=== PATIENT | female | born 1940 | race Caucasian/White ===

== ENCOUNTER 2017-01-18 11:39 | Emergency (ER) | payer MEDICARE, OTHER ==
--- NOTE | 2017-01-18 13:20 | EDM.PDOC ---
ED HISTORY OF PRESENT ILLNESS - General Chief Complaint: Cardiovascular Problem Stated Complaint: FROM CLINIC LOW HEART RATE Time Seen by Provider: 01/18/17 12:50 Source: Reports: Patient, Family, RN notes reviewed History Limitations: Reports: No limitations - History of Present Illness INITIAL COMMENTS - FREE TEXT/NARRATIVE: 77-year-old female presents to emergency department today sent over from clinic for a low heart rate and fatigue she was evaluated by the orthopedic staff at the [facility] for further evaluation. She arrives in the emergency department stage she feels fine is really complaining of no symptoms does have a history of hypothyroidism on replacement has not had her thyroid checked in a while. Review of clinic records show that she has had a couple of bradycardic episodes in the 40s tach in 2014 with a couple of minutes in 2015 as well last thyroid was checked in August of 2016 and there is a future order for thyroid - Related Data Allergies/ADRs: Allergies Allergy/AdvReac Type Severity Reaction Status Date / Time hydrocodone Allergy Other Verified 03/28/16 06:47 Home Meds: Home Meds Aspirin [Children's Aspirin] 81 mg PO DAILY 10/28/15 [History] B Complex With Vitamin C [Super B Complex-Vitamin C] 1 tab PO DAILY 10/28/15 [ History] Biotin 5,000 mcg PO DAILY 10/28/15 [History] Cholecalciferol (Vitamin D3) [Vitamin D3] 2,000 unit PO DAILY 10/28/15 [History] Cyanocobalamin (Vitamin B-12) [Vitamin B-12] 2,500 mcg SL DAILY 10/28/15 [ History] LORazepam [Ativan] 1 mg PO BID PRN 10/28/15 [History] Levothyroxine [Sythroid] 100 mcg PO DAILY 10/28/15 [History] Gillett-3/DHA/Epa/Fish Oil [Gillett-3 Fish Oil 1,000 MG Sfgl] 1,000 mg PO DAILY 04/07 [History] Pediatric Multivit Comb #19/FA [Flintstones Multi-Vit Gummies] 1 tab PO BID 04/07 [History] Potassium Chloride [Klor-Con 10] 10 meq PO DAILY 10/28/15 [History] Vitamin E 400 unit PO DAILY 10/28/15 [History] Zolpidem [Ambien] 5 mg PO BEDTIME PRN 10/28/15 [History] Past Medical History HEENT History: Reports: Allergic rhinitis, Impaired vision Other HEENT History: wears glasses 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: , 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 Musculoskeletal History: Reports: Fracture, Osteoarthritis, Osteoporosis Neurological History: Reports: Vertigo Psychiatric History: Reports: Anxiety, Depression Endocrine/Metabolic History: Reports: Hypoparathyroidism, Obesity/BMI 30+ - Infectious Disease History Infectious Disease History: Reports: Chicken pox, Measles, Rubella - Past Surgical History HEENT Surgical History: Reports: Adenoidectomy, Tonsillectomy GI Surgical History: Reports: Bariatric procedure, Colonoscopy, EGD Female Surgical History: Reports: Hysterectomy Musculoskeletal Surgical History: Reports: Other (see below) Other Musculoskeletal Surgeries/Procedures:: right thumb Social & Family History - Family History Family Medical History: Noncontributory - Tobacco Use Smoking Status *Q: Former Smoker Second Hand Smoke Exposure: No - Caffeine Use Caffeine Use: Reports: Coffee, Tea Other Caffeine Use: 1-2 cups a day - Alcohol Use Days Per Week of Alcohol Use: 1 Number of Drinks Per Day: 1 Total Drinks Per Week: 1 - Recreational Drug Use Recreational Drug Use: Yes ED ROS GENERAL - Review of Systems Review Of Systems: See Below Constitutional: Reports: no symptoms HEENT: Reports: No symptoms Respiratory: Reports: No Symptoms Cardiovascular: Reports: No symptoms GI/Abdominal: Reports: No symptoms : Reports: no symptoms Musculoskeletal: Reports: no symptoms Skin: Reports: no symptoms Neurological: Reports: No Symptoms ED EXAM, GENERAL - Physical Exam Exam: See Below Exam Limited By: No limitations General Appearance: alert, WD/WN, no apparent distress Head: atraumatic, normocephalic Neck: normal inspection, supple, non-tender, full range of motion Respiratory/Chest: no respiratory distress, lungs clear, normal breath sounds, no accessory muscle use Cardiovascular: regular rate, rhythm, no murmur GI/Abdominal: soft, non tender Course - Vital Signs Last Recorded V/S: Last Vital Signs Temp 93.2 F L 01/18/17 11:45 Pulse 63 01/18/17 11:45 Resp 12 01/18/17 11:45 BP 195/94 H 01/18/17 11:45 Pulse Ox 95 01/18/17 11:45 - Orders/Labs/Meds Labs: Laboratory Tests 03/01/18/17 01/18/17 Range/Units 13:11 13:11 13:11 WBC 7.2 (4.5-11.0) K/uL RBC 4.85 (3.30-5.50) M/uL Hgb 14.9 (12.0-15.0) g/dL Hct 45.0 (36.0-48.0) % MCV 93 (80-98) fL MCH 31 (27-31) pg MCHC 33 (32-36) % Plt Count 261 (150-400) K/uL Neut % (Auto) 60 (36-66) % Lymph % (Auto) 32 (24-44) % Weakley % (Auto) 8 H (2-6) % Eos % (Auto) 1 L (2-4) % Baso % (Auto) 1 (0-1) % Sodium 143 (140-148) mmol/L Potassium 4.7 (3.6-5.2) mmol/L Chloride 106 (100-108) mmol/L Carbon Dioxide 27 (21-32) mmol/L Anion Gap 9.8 (5.0-14.0) mmol/L BUN 19 H (7-18) mg/dL Creatinine 0.8 (0.6-1.0) mg/dL Est Cr Clr Drug Dosing 47.32 mL/min Estimated GFR (MDRD) > 60 (>60) Glucose 100 (74-106) mg/dL Calcium 8.4 L (8.5-10.1) mg/dL TSH, Ultra Sensitive 0.678 (0.358-3.740) uIU/mL Departure - Departure Time of Disposition: 14:25 Disposition: Home, Self-Care 01 Condition: good Clinical Impression: Bradycardia Instructions: Hypertension, [id number] Forms: ED Department Discharge Additional Instructions: Will set her up for a Holter monitor plan to do this as an outpatient she has an appointment Monday, then followup with the primary care for results - Assessment/Plan Plan: Assessment Acuity = chronic Site and laterality = bradycardia Etiology = unclear etiology Manifestations = asymptomatic Location of injury = home Lab values = CBC, CMP, thyroid within normal limits EKG demonstrates normal heart rate normal sinus rhythm Plan I did discuss with her options also discussed with her primary care the plan. we're going to set her up for a Holter monitor as an outpatient at which time results sent to her primary care provider Patient was in agreement with the plan all questions were answered, they were instructed to return to the emergency department or call for worsening symptoms. This note was dictated using [employer] voice recognition software please call with any questions.
[2017-01-18 14:38] VITALS: BP 159/83
== END 2017-01-18 14:45 | disposition home or self-care (01) ==
LOC: JP.ED 11:39
DX: R00.1 Bradycardia, unspecified (principal); F41.9 Anxiety disorder, unspecified; F32.9 Major depressive disorder, single episode, unspecified; E20.9 Hypoparathyroidism, unspecified; E66.9 Obesity, unspecified; Z68.37 Body mass index [BMI] 37.0-37.9, adult; Z98.84 Bariatric surgery status; Z90.710 Acquired absence of both cervix and uterus; Z98.890 Other specified postprocedural states; Z79.82 Long term (current) use of aspirin; Z79.899 Other long term (current) drug therapy; Z88.5 Allergy status to narcotic agent; Z87.891 Personal history of nicotine dependence
CPT/HCPCS: 36415; 80048; 84443; 85025; 99283

== ENCOUNTER 2017-01-25 14:48 | Emergency (ER) | payer MEDICARE, OTHER ==
--- NOTE | 2017-01-25 15:45 | EDM.PDOC ---
ED HISTORY OF PRESENT ILLNESS - General Chief Complaint: Cardiovascular Problem Stated Complaint: ELEVATED BLOOD PRESSURE Time Seen by Provider: 01/25/17 15:14 Source: Reports: Patient, Old records, RN notes reviewed History Limitations: Reports: No limitations - History of Present Illness INITIAL COMMENTS - FREE TEXT/NARRATIVE: 77-year-old female presents to emergency department today for evaluation of blood pressure, she was sent over by clinic for elevated blood pressures. She does bring in her blood pressure log high systolic is 169 height is diastolic is 102, blood pressure reading in the emergency department 152/77 146/66 she was also evaluated earlier this week for bradycardia recently had a Holter monitor test which demonstrates a first degree block with multiple PACs and occasional PVCs however heart rate ranged from 52-112 with an average of 75 beats per minute with no symptoms noted. At this time she is asymptomatic however she is concerned and anxious about her blood pressure - Related Data Allergies/ADRs: Allergies Allergy/AdvReac Type Severity Reaction Status Date / Time hydrocodone Allergy Other Verified 01/25/17 15:05 Home Meds: Home Meds Aspirin [Children's Aspirin] 81 mg PO DAILY 10/28/15 [History] B Complex With Vitamin C [Super B Complex-Vitamin C] 1 tab PO DAILY 10/28/15 [ History] Biotin 5,000 mcg PO DAILY 10/28/15 [History] Cholecalciferol (Vitamin D3) [Vitamin D3] 2,000 unit PO DAILY 10/28/15 [History] Cyanocobalamin (Vitamin B-12) [Vitamin B-12] 2,500 mcg SL DAILY 10/28/15 [ History] LORazepam [Ativan] 1 mg PO BID PRN 10/28/15 [History] Levothyroxine [Sythroid] 100 mcg PO DAILY 10/28/15 [History] Deweese-3/DHA/Epa/Fish Oil [Deweese-3 Fish Oil 1,000 MG Sfgl] 1,000 mg PO DAILY 04/07 [History] Pediatric Multivit Comb #19/FA [Flintstones Multi-Vit Gummies] 1 tab PO BID 04/07 [History] Potassium Chloride [Klor-Con 10] 10 meq PO DAILY 10/28/15 [History] Vitamin E 400 unit PO DAILY 10/28/15 [History] Zolpidem [Ambien] 5 mg PO BEDTIME PRN 10/28/15 [History] Past Medical History HEENT History: Reports: Allergic rhinitis, Impaired vision Other HEENT History: wears glasses Cardiovascular History: Reports: Hypertension 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: , 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 Musculoskeletal History: Reports: Fracture, Osteoarthritis, Osteoporosis Neurological History: Reports: Vertigo Psychiatric History: Reports: Anxiety, Depression Endocrine/Metabolic History: Reports: Hypoparathyroidism, Obesity/BMI 30+ - Infectious Disease History Infectious Disease History: Reports: Chicken pox, Measles, Rubella - Past Surgical History HEENT Surgical History: Reports: Adenoidectomy, Tonsillectomy GI Surgical History: Reports: Bariatric procedure, Colonoscopy, EGD Female Surgical History: Reports: Hysterectomy Musculoskeletal Surgical History: Reports: Other (see below) Other Musculoskeletal Surgeries/Procedures:: right thumb Social & Family History - Family History Family Medical History: Noncontributory - Tobacco Use Smoking Status *Q: Former Smoker Second Hand Smoke Exposure: No - Caffeine Use Caffeine Use: Reports: Coffee, Tea Other Caffeine Use: 1-2 cups a day - Alcohol Use Days Per Week of Alcohol Use: 1 Number of Drinks Per Day: 1 Total Drinks Per Week: 1 - Recreational Drug Use Recreational Drug Use: No ED ROS GENERAL - Review of Systems Review Of Systems: See Below Constitutional: Reports: no symptoms Respiratory: Reports: No Symptoms Cardiovascular: Reports: No symptoms GI/Abdominal: Reports: No symptoms : Reports: no symptoms ED EXAM, GENERAL - Physical Exam Exam: See Below Exam Limited By: No limitations General Appearance: alert, WD/WN, no apparent distress Respiratory/Chest: no respiratory distress, lungs clear, normal breath sounds, no accessory muscle use Cardiovascular: regular rate, rhythm, no murmur Course - Vital Signs Last Recorded V/S: Last Vital Signs Temp 97.7 F 01/25/17 15:03 Pulse 66 01/25/17 16:01 Resp 20 01/25/17 15:03 BP 171/73 H 01/25/17 16:01 Pulse Ox 96 01/25/17 15:03 - Orders/Labs/Meds Orders: Active Orders 24 hr Category Date Time Status EKG Documentation Completion [RC] ASDIRECTED Care 01/25/17 15:48 Active EKG 12 Lead [EK] Stat Ther 01/25/17 15:48 Ordered Departure - Departure Time of Disposition: 16:07 Disposition: Home, Self-Care 01 Condition: good Clinical Impression: Hypertension Qualifiers: Hypertension type: essential hypertension Qualified Code(s): I10 - Essential ( primary) hypertension Forms: ED Department Discharge Additional Instructions: Please keep your followup appointment with your primary care provider on Monday , call return to the ED with worsening of symptoms - My Orders Last 24 Hours: My Active Orders 01/25/17 15:48 EKG Documentation Completion [RC] ASDIRECTED EKG 12 Lead [EK] Stat - Assessment/Plan Last 24 Hours: My Active Orders 01/25/17 15:48 EKG Documentation Completion [RC] ASDIRECTED EKG 12 Lead [EK] Stat Plan: Assessment Acuity = chronic Site and laterality = prehypertension complication the patient's known history of anxiety Etiology = unknown etiology Manifestations = none Location of injury = home Lab values = EKG demonstrates a normal sinus rhythm at 69 blood pressures initial 152/72 and a second reading of 146/66 Plan As a followup with her primary care provider on Monday recommend review recent Holter monitor results as well as blood pressure evaluation Patient was in agreement with the plan all questions were answered, they were instructed to return to the emergency department or call for worsening symptoms. This note was dictated using [employer] voice recognition software please call with any questions.
[2017-01-25 16:01] VITALS: BP 171/73
== END 2017-01-25 16:16 | disposition home or self-care (01) ==
LOC: JP.ED 14:48
DX: I10 Essential (primary) hypertension (principal); F41.9 Anxiety disorder, unspecified; F32.9 Major depressive disorder, single episode, unspecified; E20.9 Hypoparathyroidism, unspecified; E66.9 Obesity, unspecified; Z68.37 Body mass index [BMI] 37.0-37.9, adult; Z79.82 Long term (current) use of aspirin; Z79.899 Other long term (current) drug therapy; Z88.5 Allergy status to narcotic agent; Z98.84 Bariatric surgery status; Z90.710 Acquired absence of both cervix and uterus; Z98.890 Other specified postprocedural states; Z87.891 Personal history of nicotine dependence
CPT/HCPCS: 93005; 93010; 99283; 99284-25

== ENCOUNTER 2017-12-30 13:08 | Emergency (ER) | payer MEDICARE, BC ==
[2017-12-30 14:15] VITALS: BP 174/90
--- NOTE | 2017-12-30 14:53 | EDM.PDOC ---
ED HPI GENERAL MEDICAL PROBLEM - General Chief Complaint: General Stated Complaint: SINUS SWEELING IN FACE Time Seen by Provider: 12/30/17 14:35 Source of Information: Reports: Patient, Old Records, RN History Limitations: Reports: No Limitations - History of Present Illness INITIAL COMMENTS - FREE TEXT/NARRATIVE: 77 yo female presents with R cheek pain, pressure and puffiness. Was tx'd for sinusitis about 6 weeks ago, this feels the same. No fever. No sore throat. No purulent nasal discharge. No cough. Onset Date: 12/28/17 Duration: Day(s): Location: Reports: Face (R cheek) Quality: Reports: Ache Severity: Mild Improves with: Reports: None Worsens with: Reports: Other (? 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) - Related Data Allergies Allergy/AdvReac Type Severity Reaction Status Date / Time hydrocodone Allergy Other Verified 12/30/17 14:04 Home Meds: Home Meds Aspirin [Children's Aspirin] 81 mg PO DAILY 10/28/15 [History] B-Complex with Vitamin C [Super B Complex-Vitamin C] 1 tab PO DAILY 10/28/15 [ History] Biotin 5,000 mcg PO DAILY 10/28/15 [History] Cholecalciferol (Vitamin D3) [Vitamin D3] 2,000 unit PO DAILY 10/28/15 [History] Cyanocobalamin (Vitamin B-12) [Vitamin B-12] 2,500 mcg SL DAILY 10/28/15 [ History] LORazepam [Ativan] 1 mg PO BID PRN 10/28/15 [History] Gilbert-3/DHA/Epa/Fish Oil [Gilbert-3 Fish Oil 1,000 MG Sfgl] 1,000 mg PO DAILY 04/07 [History] Pediatric Multivit Comb #19/FA [Flintstones Multi-Vit Gummies] 1 tab PO BID 04/07 [History] Potassium Chloride [Klor-Con 10] 10 meq PO DAILY 10/28/15 [History] Vitamin E 400 unit PO DAILY 10/28/15 [History] Zolpidem [Ambien] 5 mg PO BEDTIME PRN 10/28/15 [History] Amoxicillin 875 mg PO BID #14 tab 12/30/17 [Rx] Thyroid,Pork [Nature-Throid] 3 tab PO DAILY 12/30/17 [History] Past Medical History HEENT History: Reports: Allergic Rhinitis, Impaired Vision Other HEENT History: wears glasses Cardiovascular History: Reports: Hypertension 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: , 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 Musculoskeletal History: Reports: Fracture, Osteoarthritis, Osteoporosis Neurological History: Reports: Vertigo Psychiatric History: Reports: Anxiety, Depression Endocrine/Metabolic History: Reports: Hypoparathyroidism, Obesity/BMI 30+ - Infectious Disease History Infectious Disease History: Reports: Chicken Pox, Measles, Rubella - Past Surgical History GI Surgical History: Reports: Bariatric Procedure, Colonoscopy, EGD Female Surgical History: Reports: Hysterectomy Musculoskeletal Surgical History: Reports: Other (See Below) Social & Family History - Family History Family Medical History: Noncontributory - Tobacco Use Smoking Status *Q: Never Smoker Second Hand Smoke Exposure: No - Caffeine Use Caffeine Use: Reports: Coffee, Tea Other Caffeine Use: 1-2 cups a day - Alcohol Use Days Per Week of Alcohol Use: 1 Number of Drinks Per Day: 1 Total Drinks Per Week: 1 - Recreational Drug Use Recreational Drug Use: No ED ROS GENERAL - Review of Systems Review Of Systems: See Below Constitutional: Reports: No Symptoms HEENT: Reports: Sinus Problem (R cheek tenderness) Respiratory: Reports: No Symptoms Cardiovascular: Reports: No Symptoms GI/Abdominal: Reports: No Symptoms : Reports: No Symptoms Musculoskeletal: Reports: No Symptoms Skin: Reports: No Symptoms Neurological: Reports: No Symptoms ED EXAM, GENERAL - Physical Exam Exam: See Below Exam Limited By: No Limitations General Appearance: Alert, WD/WN, No Apparent Distress, Other (puffiness and tenderness of R cheek) Eye Exam: Bilateral Eye: Normal Inspection Ears: Normal External Exam, Normal Canal, Hearing Grossly Normal, Normal TMs Ear Exam: Bilateral Ear: Auricle Normal, Canal Normal, TM normal Nose: Normal Inspection, Normal Mucosa, No Blood Throat/Mouth: Normal Inspection, Normal Lips, Normal Teeth (no obvious dental abscess), Normal Oropharynx, Normal Voice, No Airway Compromise Head: Atraumatic, Normocephalic Neck: Normal Inspection, Supple, Non-Tender Respiratory/Chest: No Respiratory Distress, Lungs Clear, Normal Breath Sounds, No Accessory Muscle Use Cardiovascular: Regular Rate, Rhythm Skin Exam: Warm, Dry, Intact, Normal Color Lymphatic: No Adenopathy Course - Vital Signs Last Recorded V/S: Last Vital Signs Temp 35.9 C 12/30/17 14:10 Pulse 81 12/30/17 14:10 Resp 14 12/30/17 14:10 BP 174/90 H 12/30/17 14:10 Pulse Ox 97 12/30/17 14:10 Departure - Departure Time of Disposition: 14:52 Disposition: Home, Self-Care 01 Condition: Good Clinical Impression: Maxillary sinusitis, acute Qualifiers: Recurrence: recurrent Qualified Code(s): J01.01 - Acute recurrent maxillary sinusitis - Discharge Information Prescriptions: Amoxicillin 875 mg PO BID #14 tab Referrals: Conor Shankar MD [Primary Care Provider] - Forms: ED Department Discharge Additional Instructions: Take amoxicillin as directed until gone. Recheck with your doctor next week. Take acetaminophen as needed for pain relief.
== END 2017-12-30 15:08 | disposition home or self-care (01) ==
LOC: JP.ED 13:08
DX: J01.01 Acute recurrent maxillary sinusitis (principal); I10 Essential (primary) hypertension; F32.9 Major depressive disorder, single episode, unspecified; E20.9 Hypoparathyroidism, unspecified; Z79.82 Long term (current) use of aspirin; Z79.899 Other long term (current) drug therapy; Z88.5 Allergy status to narcotic agent
CPT/HCPCS: 99283

== ENCOUNTER 2018-02-20 05:24 | Day surgery (SDC) | payer MEDICARE, BC ==
[2018-02-20] MEDS ORDERED: Dextrose 5%-Lactated Ringers 1,000 ML IV SCH (06:00)
[2018-02-20] MEDS ORDERED: fentaNYL 100 MCG/2 ML SDV ONE (07:02)
[2018-02-20] MEDS ORDERED: Propofol 200 MG/20 ML SDV ONE (07:02)
[2018-02-20 09:09] VITALS: BP 138/71
--- NOTE | 2018-03-02 13:12 | OR ---
DATE OF PROCEDURE: 02/20/2018 PREOPERATIVE DIAGNOSES: 1. Dysphagia referable to distal esophagus without stricturing of esophagus or gastrojejunostomy. 2. Mild inflammation of esophagogastric junction. POSTOPERATIVE DIAGNOSES: OPERATIVE PROCEDURES: Upper GI endoscopy with: 1. Biopsies of gastric pouch for CLOtest (62594). 2. Dilation of gastrojejunostomy (33403). ANESTHESIA: IV sedation. INDICATIONS FOR PROCEDURE: The patient presents with some dysphagia referable to the distal esophagus or gastric pouch area. The plan was to proceed with an upper GI endoscopy with biopsies and/or dilation as indicated. Potential risks including bleeding and perforation were discussed, and the patient wished to proceed. DETAILS OF PROCEDURE: The patient was taken to the operating room and placed in a left lateral decubitus position. IV sedation was administered, after which the upper GI endoscope was passed orally through the length of the esophagus and into the gastric pouch, and from there through the gastrojejunostomy roughly 2 cm into the Wilberto limb. Findings included normal hypopharynx, larynx, upper esophageal sphincter, and esophageal body. At the EG junction, there was some mild inflammation, but there was no significant narrowing or stricturing present, either there or at the gastrojejunostomy. Biopsies were obtained from the gastric pouch and sent for CLOtest for H. pylori. In the event that we might be able to make the gastrojejunostomy somewhat wider, a 54-Ecuadorean balloon was insufflated at the gastrojejunostomy and held in position for 1 minute. There appeared to be very minimal, if any, change in caliber of this, which confirms that it had not developed a significant stricture. The scope was then withdrawn. The above findings were reconfirmed. CONDITION: The patient was taken to the recovery room in a satisfactory condition. PLAN: At this point, the plan will be to have the patient begin Carafate 500 mg in liquid form, either dissolved or as a prescription liquid and drink q.i.d. on an empty stomach. Otherwise, continue the proton pump inhibitors. I will also have Dietary see the patient when she is awake, as this dysphagia distal to the esophagus and GE junction with no strictures present may be related to some eating behavior. It also may be compounded by the patient's evolving dementia. Followup will be with Idalia Cordero PA-C, in [facility] in 2 weeks. Should she continue to have problems with dysphagia, one might consider a course of Levsin at that time. Devyn Myles MD /[id number]
== END 2018-02-20 10:40 | disposition home or self-care (01) ==
LOC: JP.SDS 05:24
PROVIDERS: ATTEND Surgery
DX: R13.10 Dysphagia, unspecified (principal); K20.9 Esophagitis, unspecified; K21.9 Gastro-esophageal reflux disease without esophagitis; E66.01 Morbid (severe) obesity due to excess calories; G47.33 Obstructive sleep apnea (adult) (pediatric); E03.9 Hypothyroidism, unspecified; F41.9 Anxiety disorder, unspecified; F32.9 Major depressive disorder, single episode, unspecified; Z88.5 Allergy status to narcotic agent
CPT/HCPCS: 43239; 43245; 87081; J2704; J3010; J7042

== ENCOUNTER 2018-04-13 07:51 | Day surgery (SDC) | payer MEDICARE, BC ==
[~2018-04-13 07:51] MED LIST: Bupivacaine 0.5% 50 ML MDV ONE; Lidocaine 1% 50 ML MDV ONE; Midazolam 1 MG/ML 2 ML SDV ONE; Propofol 200 MG/20 ML SDV ONE; fentaNYL 100 MCG/2 ML SDV ONE
[2018-04-13] MEDS ORDERED: Sodium Chloride 0.9% 1,000 ML IV SCH (08:45)
[2018-04-13] MEDS ORDERED: ceFAZolin 2 GM in Premix Bag 1 BAG IV ONE (09:00)
[2018-04-13] MEDS ORDERED: metroNIDAZOLE/Normal Saline 500 MG in Premix Bag 1 BAG IV ONE (09:15)
[2018-04-13] MEDS ORDERED: Propofol 200 MG/20 ML SDV ONE (10:00)
[2018-04-13] MEDS ORDERED: Bacitracin Oint 1 GM U/D Packet ONE (10:03)
[2018-04-13] MEDS ORDERED: hydrOXYzine HCl 100 MG/2 ML SDV IM ONE (10:27)
[2018-04-13] MEDS ORDERED: fentaNYL 100 MCG/2 ML SDV IVPUSH ONE (10:27)
[2018-04-13] MEDS ORDERED: Ertapenem 1 GM in Sodium Chloride 0.9% 100 ML IV ONE (11:30)
[2018-04-13] MEDS ORDERED: Ketorolac 60 MG/2 ML SDV IM ONE (11:30)
--- NOTE | 2018-04-13 11:49 | CR ---
CHEST: Portable CLINICAL HISTORY:Postop, catheter placement COMPARISON:11/29/2010 FINDINGS: Lung chaudhary are clear. There is no pneumothorax. Patient has a left subclavian catheter in place. Tip is in the superior vena cava atrial junction. IMPRESSION: Left subclavian catheter in good position No pneumothorax
--- NOTE | 2018-04-13 11:56 | OR ---
DATE OF PROCEDURE: 04/13/2018 PROCEDURES: 1. Drainage of right thumb abscess, complex (14960). 2. Debridement of right thumb, including muscle (78280). 3. Central line, single lumen, placement, left subclavian. COMPLICATIONS: None. 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 ANESTHESIA: MAC/local. INDICATIONS: This is a pleasant 78-year-old female who underwent repair of a laceration of her thumb by the ER physicians. The patient has been treated with antibiotics and is refractory to this. Risks, benefits, alternatives, and limitations including, but not limited to infection, bleeding, and loss of the thumb were explained to the patient, and they wished to proceed. PROCEDURE IN DETAIL: The patient was placed in supine position. The subclavian line was performed first. This was accessed in the left subclavian by prepping and draping. A micropuncture needle kit, was used to access the vein on the first pass. This was then exchanged for a 35,000th wire. This was then dilated and the single-lumen catheter was advanced. Ectopy was noted during the wire placement. This was then sutured into place and dressings were applied. The right thumb was then addressed next. Sutures were removed. This was irrigated, and the infection was noted to be down to the bone. A small amount of muscle was removed due to necrosis. Cultures were performed initially of the abscess pocket, which would be medial and superior to the incision site. After a thorough irrigation with 1 L of irrigation, a quarter-inch iodoform gauze was placed through the wound in a counter-incision technique. Dressings were applied. The patient tolerated the procedure well. Aakash Bolaños MD /[id number]
[2018-04-13 13:34] VITALS: BP 137/69
--- NOTE | 2018-04-20 07:45 | OR ---
DATE OF PROCEDURE: 04/13/2018 ADDENDUM: Size of debridement was 1 cm x 0.3 cm. Aakash Bolaños MD /[id number]
== END 2018-04-13 13:41 | disposition home or self-care (01) ==
LOC: JP.SDS 07:51
PROVIDERS: ATTEND Surgery
DX: T81.4XXA Infection following a procedure, initial encounter (principal); I10 Essential (primary) hypertension; E66.9 Obesity, unspecified; G47.33 Obstructive sleep apnea (adult) (pediatric); F41.9 Anxiety disorder, unspecified; F32.9 Major depressive disorder, single episode, unspecified; Z88.5 Allergy status to narcotic agent
CPT/HCPCS: 26011; 36556; 71045; 87070; 87075; 87077; 87205; C1894; J0690; J1335; J1642; J1885; J2250; J2704; J3010; J3410; J7030

== ENCOUNTER 2019-08-17 15:32 | Inpatient (IN) | payer BC, MEDICARE ==
[2019-08-17] MEDS ORDERED: HYDROmorphone 0.5 MG/0.5 ML Syringe IVPUSH ONE ×2 (16:26→19:04)
[2019-08-17] MEDS ORDERED: Sodium Chloride 0.9% 100 ML IV ONE (16:37)
[2019-08-17] MEDS ORDERED: Iopamidol 612 MG/ML 100 ML Bottle IV SCH (16:45)
[2019-08-17] MEDS: Sodium Chloride 0.9% 10 ML Syringe FLUSH ONE ×2 (16:54→17:13)
[2019-08-17] MEDS ORDERED: Lactated Ringers 1,000 ML IV SCH (17:30)
--- NOTE | 2019-08-17 17:48 | CRLCT ---
INDICATION: Right upper quadrant and epigastric abdominal pain. TECHNIQUE: CT of the abdomen acquired with 100 mL of Isovue 300 IV contrast. COMPARISON: None available. FINDINGS: Lower chest: Linear bibasilar scarring and atelectasis. No pleural or pericardial effusions. Liver: Multiple low-density lesions compatible with cysts measuring up to 2 cm in the left lobe. Liver is otherwise unremarkable. Spleen: Unremarkable. Pancreas: There is a mildly edematous appearance of the distal body and tail of the pancreas with adjacent peripancreatic fat stranding. Stranding extends along the left anterior para renal space and pericolic gutter. No well-defined peripancreatic fluid collection or evidence of bryce pancreatic necrosis. No pancreatic ductal dilatation. Gallbladder and bile ducts: Question tiny stones in the fundus of the gallbladder. The gallbladder is otherwise unremarkable. No biliary ductal dilatation. Kidneys: Unremarkable. Adrenal glands: Unremarkable. GI tract: Postoperative changes about the stomach and small bowel surgical anastomosis suggest gastric bypass. GI tract as imaged is otherwise unremarkable. Vascular structures: Atherosclerotic disease. No abdominal aortic aneurysm. Lymph nodes: Unremarkable. Bones: Chronic compression deformity with associated vertebral augmentation material at L1. Mild to moderate degenerative changes of the visualized spine. IMPRESSION: 1. Mild acute pancreatitis. No evidence of pancreatic pseudocyst or bryce pancreatic necrosis. 2. Probable cholelithiasis. Gallbladder is otherwise unremarkable. No biliary ductal dilatation. Dictated by Miguel Cortes MD @ 08/17/2019 5:46:29 PM Please note that all CT scans at this facility use dose modulation, iterative reconstruction, and/or weight-based dosing when appropriate to reduce radiation dose to as low as reasonably achievable. Dictated by: Miguel Cortes MD @ 08/17/2019 17:46:41 (Electronically Signed)
--- NOTE | 2019-08-17 17:57 | EDM.PDOC ---
ED HPI GENERAL MEDICAL PROBLEM - General Chief Complaint: Abdominal Pain Stated Complaint: constipation Time Seen by Provider: 08/17/19 16:53 Source of Information: Reports: Patient - History of Present Illness INITIAL COMMENTS - FREE TEXT/NARRATIVE: 79 yo presents with concerns of abdominal pain Reports several days of constipation, saw PCP and started on bowel reg Today developed pain in the epigastrium Described as an ache, moderate in severity, no radiation No associated N/V No fevers Normal BM today No prior abdominal surgeries Denies significant etoh use Abdomen Pain Score (Numeric/FACES): 9 - Related Data Allergies Allergy/AdvReac Type Severity Reaction Status Date / Time hydrocodone Allergy Other Verified 08/17/19 16:06 sucralfate [From Carafate] Allergy Other Verified 08/17/19 16:06 Home Meds: Home Meds B-Complex with Vitamin C [Super B Complex-Vitamin C] 1 tab PO DAILY 10/28/15 [ History] Biotin 5,000 mcg PO DAILY 10/28/15 [History] Cholecalciferol (Vitamin D3) [Vitamin D3] 2,000 unit PO DAILY 10/28/15 [History] Cyanocobalamin (Vitamin B-12) [Vitamin B-12] 2,500 mcg SL DAILY 10/28/15 [ History] LORazepam [Ativan] 1 mg PO BID PRN 10/28/15 [History] Potassium Chloride [Klor-Con 10] 10 meq PO DAILY 10/28/15 [History] Vitamin E 400 unit PO DAILY 10/28/15 [History] Calcitonin ([place]) [Miacalcin Nasal [place]] 1 spray TWIN DAILY 02/19/18 [History] Calcium Carbonate/Vitamin D3 [Calcium Carbonate/Vitamin D 600 MG-200 Unit] 1, 000 - 1,200 mg PO BID 02/19/18 [History] Fluticasone Propionate [Flonase] 2 spray TWIN DAILY 02/19/18 [History] Levothyroxine Sodium [Synthroid] 100 mcg PO DAILY 02/19/18 [History] rOPINIRole HCl [Requip] 0.5 mg PO TID 02/19/18 [History] traZODone HCl [Trazodone HCl] 100 mg PO BEDTIME 02/19/18 [History] Pantoprazole Sodium [Protonix] 40 mg PO DAILY 08/17/19 [History] traMADol HCl [Tramadol HCl] 50 mg PO BID 08/17/19 [History] Past Medical History HEENT History: Reports: Allergic Rhinitis, Impaired Vision Other HEENT History: wears glasses Cardiovascular History: Reports: Syncope Gastrointestinal History: Reports: None, Other (See Below) Other Gastrointestinal History: history of Ulcer Genitourinary History: Reports: None 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: , 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 Musculoskeletal History: Reports: Fracture, Osteoarthritis, Osteoporosis, Other (See Below) Other Musculoskeletal History: right thumb infection Neurological History: Reports: Vertigo Psychiatric History: Reports: Anxiety, Depression Endocrine/Metabolic History: Reports: Hypoparathyroidism, Obesity/BMI 30+ Hematologic History: Reports: B12 Deficiency - Infectious Disease History Infectious Disease History: Reports: Chicken Pox, Measles, Mumps - Past Surgical History HEENT Surgical History: Reports: Tonsillectomy Cardiovascular Surgical History: Reports: None GI Surgical History: Reports: Bariatric Procedure, Colonoscopy, EGD Female Surgical History: Reports: Hysterectomy Endocrine Surgical History: Reports: None Neurological Surgical History: Reports: Other (See Below) Other Neurological Surgeries/Procedures: hydroplasty Musculoskeletal Surgical History: Reports: Other (See Below) Other Musculoskeletal Surgeries/Procedures:: thumb surgery Dermatological Surgical History: Reports: None Social & Family History - Family History Family Medical History: Noncontributory - Tobacco Use Smoking Status *Q: Former Smoker Used Tobacco, but Quit: Yes Month/Year Tobacco Last Used: 20 years - Caffeine Use Caffeine Use: Reports: Coffee Other Caffeine Use: 1-2 cups a day - Recreational Drug Use Recreational Drug Use: No ED ROS GENERAL - Review of Systems Review Of Systems: See Below Constitutional: Reports: No Symptoms HEENT: Reports: No Symptoms Respiratory: Reports: No Symptoms Cardiovascular: Reports: No Symptoms Endocrine: Reports: No Symptoms GI/Abdominal: Reports: Abdominal Pain : Reports: No Symptoms Musculoskeletal: Reports: No Symptoms Skin: Reports: No Symptoms Neurological: Reports: No Symptoms Psychiatric: Reports: No Symptoms Hematologic/Lymphatic: Reports: No Symptoms Immunologic: Reports: No Symptoms ED EXAM, GI/ABD - Physical Exam Exam: See Below Exam Limited By: No Limitations General Appearance: Alert, No Apparent Distress Ears: Normal External Exam Nose: Normal Inspection Throat/Mouth: Normal Inspection Head: Atraumatic, Normocephalic Respiratory/Chest: No Respiratory Distress, Lungs Clear GI/Abdominal Exam: Soft, No Distention, Tender (epigastric and RUQ) Rectal (Female) Exam: Normal Exam Back Exam: Normal Inspection Extremities: Normal Inspection Neurological: Alert, Oriented Psychiatric: Normal Affect Skin Exam: Warm, Dry Course - Vital Signs Last Recorded V/S: Last Vital Signs Temp 36.2 C 08/17/19 16:04 Pulse 74 08/17/19 17:47 Resp 16 08/17/19 17:47 BP 178/89 H 08/17/19 17:47 Pulse Ox 95 08/17/19 17:47 - Orders/Labs/Meds Orders: Active Orders 24 hr Category Date Time Status Iopamidol [Isovue-300 (61%)] Med 08/17/19 16:45 Active 100 ml IV . DIRECTED Lactated Ringers [Ringers, Lactated] 1,000 ml Med 08/17/19 17:30 Active IV ASDIRECTED Medication Orders Lactated Ringer's (Ringers, Lactated) 1,000 mls @ 100 mls/hr IV ASDIRECTED RADHA Iopamidol (Isovue-300 (61%)) 100 ml IV . DIRECTED RADHA Last Admin: 08/17/19 17:13 Dose: 100 ml Labs: Laboratory Tests 08/17/19 08/17/19 08/17/19 Range/Units 16:40 16:40 17:20 WBC 13.6 H (4.5-11.0) K/uL RBC 3.71 (3.30-5.50) M/uL Hgb 12.6 D (12.0-15.0) g/dL Hct 38.5 (36.0-48.0) % MCV 104 H (80-98) fL MCH 34 H (27-31) pg MCHC 33 (32-36) % Plt Count 361 (150-400) K/uL Sodium 138 L (140-148) mmol/L Potassium 4.3 (3.6-5.2) mmol/L Chloride 101 (100-108) mmol/L Carbon Dioxide 29 (21-32) mmol/L Anion Gap 12.3 (5.0-14.0) mmol/L BUN 16 (7-18) mg/dL Creatinine 0.9 (0.6-1.0) mg/dL Est Cr Clr Drug Dosing 36.41 mL/min Estimated GFR (MDRD) > 60 (>60) Glucose 101 (74-106) mg/dL Calcium 8.4 L (8.5-10.1) mg/dL Total Bilirubin 0.6 (0.2-1.0) mg/dL AST 70 H (15-37) U/L ALT 50 (12-78) U/L Alkaline Phosphatase 188 H (46-116) U/L Total Protein 6.3 L (6.4-8.2) g/dL Albumin 3.2 L (3.4-5.0) g/dL Globulin 3.1 (2.3-3.5) g/dL Albumin/Globulin Ratio 1.0 L (1.2-2.2) Triglycerides 91 (15-150) mg/dL Cholesterol 190 (0-200) mg/dL LDL Cholesterol Direct 44 (0-100) mg/dL HDL Cholesterol 120 H (40-60) mg/dL Lipase 2750 H (73-393) U/L Meds: Medications Generic Name Dose Route Start Last Admin Trade Name Freq PRN Reason Stop Dose Admin Lactated Ringer's 1,000 mls @ 100 mls/hr 08/17/19 17:30 Ringers, Lactated IV ASDIRECTED RADHA Iopamidol 100 ml 08/17/19 16:45 08/17/19 17:13 Isovue-300 (61%) IV 100 ml . DIRECTED RADHA Administration Discontinued Medications Generic Name Dose Route Start Last Admin Trade Name Freq PRN Reason Stop Dose Admin Hydromorphone HCl 0.25 mg 08/17/19 16:26 08/17/19 16:52 Dilaudid IVPUSH 08/17/19 16:27 0.25 mg ONETIME ONE Administration Sodium Chloride 100 mls @ 3.5 mls/sec 08/17/19 16:37 08/17/19 17:13 Normal Saline IV 08/17/19 16:38 2.5 mls/sec ONETIME ONE Administration Sodium Chloride 10 ml 08/17/19 16:37 08/17/19 17:13 Saline Flush FLUSH 08/17/19 16:38 10 ml ONETIME ONE Administration - Re-Assessments/Exams Free Text/Narrative Re-Assessment/Exam: 79 yo presents with RUQ, epigastric abdominal pain Normal vitals, quite tender on exam Initial labs consistent with pancreatitis. Imaging show mild disease without obstruction of ducts. Unclear etiology - ? etoh use she is not forthcoming with Provided IVF and pain medication She will be admitted for further work-up 08/17/19 17:55 Departure - Departure Time of Disposition: 17:55 Disposition: Admitted As Inpatient 66 Clinical Impression: Pancreatitis Qualifiers: Chronicity: acute Pancreatitis type: unspecified pancreatitis type Acute pancreatitis complication: no infection or necrosis Qualified Code(s): K85.90 - Acute pancreatitis without necrosis or infection, unspecified - Discharge Information Referrals: Conor Shankar MD [Primary Care Provider] - - My Orders Last 24 Hours: My Active Orders 08/17/19 16:45 Iopamidol [Isovue-300 (61%)] 100 ml IV . DIRECTED 08/17/19 17:30 Lactated Ringers [Ringers, Lactated] 1,000 ml IV ASDIRECTED - Assessment/Plan Last 24 Hours: My Active Orders 08/17/19 16:45 Iopamidol [Isovue-300 (61%)] 100 ml IV . DIRECTED 08/17/19 17:30 Lactated Ringers [Ringers, Lactated] 1,000 ml IV ASDIRECTED
[2019-08-17] MEDS ORDERED: Morphine 2 MG/ML Syringe IVPUSH PRN (19:32)
[2019-08-17] MEDS ORDERED: Acetaminophen 325 MG Tab PO PRN (19:32)
[2019-08-17] MEDS ORDERED: Bisacodyl 5 MG Tab PO PRN (19:32)
[2019-08-17] MEDS ORDERED: Albuterol 0.083% 2.5 MG/3 ML Neb Soln NEB PRN (19:32)
[2019-08-17] MEDS ORDERED: Ondansetron 4 MG Tab.DIS PO PRN (19:32)
[2019-08-17] MEDS ORDERED: Furosemide 20 MG Tab PO PRN (19:41)
--- NOTE | 2019-08-17 19:51 | PCM.HP.2 ---
H&P History of Present Illness - General Date of Service: 08/17/19 Admit Problem/Dx: Admission Diagnosis/Problem Admission Diagnosis/Problem Acute pancreatitis Source of Information: Patient History Limitations: Reports: No Limitations - History of Present Illness Initial Comments - Free Text/Narative: Chief Complaint: abdominal pain This is a 79 year old female presents to ER for acute abdominal pain. reports pain started about 2 days ago, today with worsen unbearable pain. She tried to eat cereal for breakfast, hasn't been able to eat or drink fluids since this then due to pain. ER work up CBC WBC 13.5, hgb 12.6, hct 38.5, plts 361. Chemistries abnormal Lipase 2750. Imaging CT abdomen-pelvis : mild acute pancreatitis, cholelithiasis. Will plan to admit to Med-Surg for further care and treatment. Onset of Symptoms: Reports: Gradual Duration of Symptoms: Reports: Day(s): (2 days), Getting Worse Location: Reports: Abdomen Quality: Reports: Sharp, Stabbing Severity: Severe Improves with: Reports: None Worsens with: Reports: Eating Associated Symptoms: Reports: Loss of Appetite, Nausea/Vomiting Abdomen Pain Score (Numeric/FACES): 9 - Related Data Allergies/Adverse Reactions: Allergies Allergy/AdvReac Type Severity Reaction Status Date / Time hydrocodone Allergy Other Verified 08/17/19 16:06 sucralfate [From Carafate] Allergy Other Verified 08/17/19 16:06 Home Medications: Home Meds B-Complex with Vitamin C [Super B Complex-Vitamin C] 1 tab PO DAILY 10/28/15 [ History] Biotin 5,000 mcg PO DAILY 10/28/15 [History] Cholecalciferol (Vitamin D3) [Vitamin D3] 2,000 unit PO DAILY 10/28/15 [History] Cyanocobalamin (Vitamin B-12) [Vitamin B-12] 2,500 mcg SL DAILY 10/28/15 [ History] LORazepam [Ativan] 1 mg PO BID PRN 10/28/15 [History] Potassium Chloride [Klor-Con 10] 10 meq PO DAILY 10/28/15 [History] Vitamin E 400 unit PO DAILY 10/28/15 [History] Calcitonin ([place]) [Miacalcin Nasal [place]] 1 spray TWIN DAILY 02/19/18 [History] Calcium Carbonate/Vitamin D3 [Calcium Carbonate/Vitamin D 600 MG-200 Unit] 1, 000 - 1,200 mg PO BID 02/19/18 [History] Fluticasone Propionate [Flonase] 2 spray TWIN DAILY 02/19/18 [History] Levothyroxine Sodium [Synthroid] 100 mcg PO DAILY 02/19/18 [History] rOPINIRole HCl [Requip] 0.5 mg PO TID 02/19/18 [History] traZODone HCl [Trazodone HCl] 100 mg PO BEDTIME 02/19/18 [History] Furosemide 20 mg PO DAILY PRN 08/17/19 [History] Pantoprazole Sodium [Protonix] 40 mg PO DAILY 08/17/19 [History] traMADol HCl [Tramadol HCl] 50 mg PO BID 08/17/19 [History] Past Medical History HEENT History: Reports: Allergic Rhinitis, Impaired Vision Other HEENT History: wears glasses Cardiovascular History: Reports: Syncope Gastrointestinal History: Reports: None, Other (See Below) Other Gastrointestinal History: history of Ulcer Genitourinary History: Reports: None 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: , 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 Musculoskeletal History: Reports: Fracture, Osteoarthritis, Osteoporosis, Other (See Below) Other Musculoskeletal History: right thumb infection Neurological History: Reports: Vertigo Psychiatric History: Reports: Anxiety, Depression Endocrine/Metabolic History: Reports: Hypoparathyroidism, Obesity/BMI 30+ Hematologic History: Reports: B12 Deficiency - Infectious Disease History Infectious Disease History: Reports: Chicken Pox, Measles, Mumps - Past Surgical History HEENT Surgical History: Reports: Tonsillectomy Cardiovascular Surgical History: Reports: None GI Surgical History: Reports: Bariatric Procedure, Colonoscopy, EGD Female Surgical History: Reports: Hysterectomy Endocrine Surgical History: Reports: None Neurological Surgical History: Reports: Other (See Below) Other Neurological Surgeries/Procedures: hydroplasty Musculoskeletal Surgical History: Reports: Other (See Below) Other Musculoskeletal Surgeries/Procedures:: thumb surgery Dermatological Surgical History: Reports: None Social & Family History - Family History Family Medical History: Noncontributory - Tobacco Use Smoking Status *Q: Former Smoker Used Tobacco, but Quit: Yes Month/Year Tobacco Last Used: 20 years - Caffeine Use Caffeine Use: Reports: Coffee Other Caffeine Use: 1-2 cups a day - Recreational Drug Use Recreational Drug Use: No - Living Situation & Occupation Living situation: Reports: Alone Occupation: Retired (lives alone in [facility] [address] [place] [address]. Has 2 living Children, 1 Son Marc in 1995 of cancer.) H&P Review of Systems - Review of Systems: Review Of Systems: See Below General: Reports: Decreased Appetite (epigastric abominal pain x 2 days worse this morning and continues all day.) HEENT: Reports: Glasses Pulmonary: Reports: No Symptoms Cardiovascular: Reports: No Symptoms Gastrointestinal: Reports: Abdominal Pain, Anorexia, Decreased Appetite, Nausea , Vomiting, Other (last bowel movement today.) Genitourinary: Reports: No Symptoms Musculoskeletal: Reports: No Symptoms Skin: Reports: Other (fragil skin with multi skin tears and bruising. no signs of secondary infection.) Psychiatric: Reports: No Symptoms Neurological: Reports: No Symptoms Hematologic/Lymphatic: Reports: Easy Bruising Immunologic: Reports: No Symptoms Exam - Exam Exam: See Below - Vital Signs Vital Signs: Last Vital Signs Temp 36.2 C 08/17/19 16:04 Pulse 74 08/17/19 17:47 Resp 16 08/17/19 17:47 BP 178/89 H 08/17/19 17:47 Pulse Ox 95 08/17/19 17:47 Weight: 68.8 kg - Exam Quality Assessment: DVT Prophylaxis General: Alert, Oriented, Cooperative, Mild Distress (given Dilaudid 0.5 mg at 1904 for pain.) HEENT: PERRLA, Mucosa Moist & [place], Glasses Neck: Supple, Trachea Midline Lungs: Clear to Auscultation, Normal Respiratory Effort Cardiovascular: Regular Rate, Regular Rhythm, Normal S1, Normal S2 GI/Abdominal Exam: Normal Bowel Sounds, Soft, Tender (upper abdomen increased pain epigastric area.) (Female) Exam: Deferred Rectal (Female) Exam: Deferred Back Exam: Normal Inspection, Full Range of Motion Extremities: Other (2+pitting edema to thighs) Peripheral Pulses: 2+: Radial (L), Radial (R) Skin: Warm, Dry, [place], Ecchymosis, Other (forearms, left lower chin with mult bruising, skin tears.) Neurological: Reflexes Equal Bilateral, Strength Equal Bilateral Neuro Extensive - Mental Status: Alert, Oriented x3, Normal Mood/Affect, Normal Cognition Neuro Extensive - Motor, Sensory, Reflexes: Motor/Sensory Deficits, Other ( reports frequent falls, ambulates with cane) Psychiatric: Alert, Normal Affect, Normal Mood - Patient Data Lab Results Last 24 hrs: Laboratory Results - last 24 hr 08/17/19 08/17/19 08/17/19 Range/Units 16:40 16:40 17:20 WBC 13.6 H (4.5-11.0) K/uL RBC 3.71 (3.30-5.50) M/uL Hgb 12.6 D (12.0-15.0) g/dL Hct 38.5 (36.0-48.0) % MCV 104 H (80-98) fL MCH 34 H (27-31) pg MCHC 33 (32-36) % Plt Count 361 (150-400) K/uL Sodium 138 L (140-148) mmol/L Potassium 4.3 (3.6-5.2) mmol/L Chloride 101 (100-108) mmol/L Carbon Dioxide 29 (21-32) mmol/L Anion Gap 12.3 (5.0-14.0) mmol/L BUN 16 (7-18) mg/dL Creatinine 0.9 (0.6-1.0) mg/dL Est Cr Clr Drug Dosing 36.41 mL/min Estimated GFR (MDRD) > 60 (>60) Glucose 101 (74-106) mg/dL Calcium 8.4 L (8.5-10.1) mg/dL Total Bilirubin 0.6 (0.2-1.0) mg/dL AST 70 H (15-37) U/L ALT 50 (12-78) U/L Alkaline Phosphatase 188 H (46-116) U/L Total Protein 6.3 L (6.4-8.2) g/dL Albumin 3.2 L (3.4-5.0) g/dL Globulin 3.1 (2.3-3.5) g/dL Albumin/Globulin Ratio 1.0 L (1.2-2.2) Triglycerides 91 (15-150) mg/dL Cholesterol 190 (0-200) mg/dL LDL Cholesterol Direct 44 (0-100) mg/dL HDL Cholesterol 120 H (40-60) mg/dL Lipase 2750 H (73-393) U/L Result Diagrams: 08/17/19 16:40 08/17/19 16:40 - Problem List (1) Pancreatitis SNOMED Code(s): 53884676 ICD Code: K85.90 - ACUTE PANCREATITIS WITHOUT NECROSIS OR INFECTION, UNSP Status: Acute Priority: High Current Visit: Yes Qualifiers: Chronicity: acute Pancreatitis type: unspecified pancreatitis type Acute pancreatitis complication: no infection or necrosis Qualified Code(s): K85.90 - Acute pancreatitis without necrosis or infection, unspecified (2) Bilateral lower extremity edema SNOMED Code(s): 519222248, 99586901, 508450007 ICD Code: R60.0 - LOCALIZED EDEMA Status: Acute Priority: High Current Visit: Yes (3) Hypertension SNOMED Code(s): 48927265 ICD Code: I10 - ESSENTIAL (PRIMARY) HYPERTENSION Status: Acute Priority: Low Current Visit: Yes Qualifiers: Hypertension type: essential hypertension Qualified Code(s): I10 - Essential (primary) hypertension (4) Hypothyroidism SNOMED Code(s): 32681100 ICD Code: E03.9 - HYPOTHYROIDISM, UNSPECIFIED Status: Acute Priority: Low Current Visit: Yes (5) Coronary arteriosclerosis SNOMED Code(s): 09439888 ICD Code: I25.10 - ATHSCL HEART DISEASE OF [place] CORONARY ARTERY W/O ANG PCTRS Status: Acute Priority: Low Current Visit: Yes Problem List Initiated/Reviewed/Updated: Yes Orders Last 24hrs: Active Orders 24 hr Category Date Time Status Cardiac Monitoring [RC] .As Directed Care 08/17/19 19:32 Active Intake and Output [RC] QSHIFT Care 08/17/19 19:32 Active Notify Provider Vital Signs [RC] ASDIRECTED Care 08/17/19 19:32 Active Oxygen Therapy [RC] PRN Care 08/17/19 19:32 Active Pulse Oximetry [RC] CONTINUOUS Care 08/17/19 19:32 Active RT Aerosol Therapy [RC] ASDIRECTED Care 08/17/19 19:32 Active Up With Assistance [RC] ASDIRECTED Care 08/17/19 19:32 Active VTE/DVT Education [RC] Per Unit Routine Care 08/17/19 19:32 Active Vital Signs [RC] Q4H Care 08/17/19 19:32 Active Nothing per Oral Now Diet [DIET] Diet 08/17/19 Breakfast Active AMYLASE [CHEM] AM Lab 08/18/19 05:11 Ordered AMYLASE [CHEM] AM Lab 08/19/19 05:11 Ordered AMYLASE [CHEM] Urgent Lab 08/17/19 19:38 Ordered BASIC METABOLIC PANEL,BMP [CHEM] AM Lab 08/18/19 05:11 Ordered CBC WITH AUTO DIFF [HEME] AM Lab 08/18/19 05:11 Ordered LIPASE [CHEM] AM Lab 08/18/19 05:11 Ordered LIPASE [CHEM] AM Lab 08/19/19 05:11 Ordered Acetaminophen [Tylenol] Med 08/17/19 19:32 Ordered 650 mg PO Q4H PRN Albuterol [Proventil Neb Soln] Med 08/17/19 19:32 Ordered 2.5 mg NEB Q4H PRN Bisacodyl [Dulcolax] Med 08/17/19 19:32 Ordered 5 mg PO DAILY PRN Docusate Sodium [Colace] Med 08/17/19 19:32 Ordered 100 mg PO BID PRN Enoxaparin [Lovenox] Med 08/18/19 09:00 Ordered 30 mg SUBCUT DAILY Furosemide [Lasix] Med 08/17/19 19:41 Ordered 20 mg PO DAILY PRN LORazepam [Ativan] Med 08/17/19 19:32 Ordered 1 mg PO BID PRN Levothyroxine [Synthroid] Med 08/18/19 09:00 Ordered 100 mcg PO DAILY Morphine Med 08/17/19 19:32 Ordered 2 mg IVPUSH Q2H PRN Ondansetron [Zofran ODT] Med 08/17/19 19:32 Ordered 4 mg PO Q6H PRN Pantoprazole [ProTONIX IV] Med 08/17/19 21:00 Ordered 40 mg IV BEDTIME Potassium Chloride [Klor-Con 10] Med 08/18/19 09:00 Ordered 10 meq PO DAILY Sodium Chloride 0.9% [Normal Saline] 1,000 ml Med 08/17/19 19:32 Ordered IV ASDIRECTED oxyCODONE Med 08/17/19 19:32 Ordered 5 mg PO Q4H PRN rOPINIRole [Requip] Med 08/17/19 21:00 Ordered 0.5 mg PO TID traMADol [Ultram] Med 08/17/19 21:00 Ordered 50 mg PO BID traZODone HCl [Trazodone HCl] Med 08/17/19 21:00 Ordered 100 mg PO BEDTIME Resuscitation Status Routine Resus Stat 08/17/19 18:43 Ordered Medication Orders Acetaminophen (Tylenol) 650 mg PO Q4H PRN PRN Reason: Pain (Mild 1-3)/fever Albuterol (Proventil Neb Soln) 2.5 mg NEB Q4H PRN PRN Reason: Shortness Of Breath/wheezing Bisacodyl (Dulcolax) 5 mg PO DAILY PRN PRN Reason: Constipation Docusate Sodium (Colace) 100 mg PO BID PRN PRN Reason: Constipation Enoxaparin Sodium (Lovenox) 30 mg SUBCUT DAILY RADHA Furosemide (Lasix) 20 mg PO DAILY PRN PRN Reason: Edema Sodium Chloride (Normal Saline) 1,000 mls @ 125 mls/hr IV ASDIRECTED [facility] Levothyroxine Sodium (Synthroid) 100 mcg PO DAILY RADHA Lorazepam (Ativan) 1 mg PO BID PRN PRN Reason: Anxiety Morphine Sulfate (Morphine) 2 mg IVPUSH Q2H PRN PRN Reason: Pain (severe 7-10) Non-Formulary Medication (Potassium Chloride [Klor-Con 10]) 10 meq PO DAILY [facility] Non-Formulary Medication (Trazodone Hcl [Trazodone Hcl]) 100 mg PO BEDTIME RADHA Ondansetron HCl (Zofran Odt) 4 mg PO Q6H PRN PRN Reason: Nausea able to take PO Oxycodone HCl (Oxycodone) 5 mg PO Q4H PRN PRN Reason: Pain (moderate 4-6) Pantoprazole Sodium (Protonix Iv) 40 mg IV BEDTIME RADHA Ropinirole HCl (Requip) 0.5 mg PO TID RADHA Tramadol HCl (Ul[place]am) 50 mg PO BID [facility] Assessment/Plan Comment:: Assessment/Plan Comment:: ASSESSMENT AND PLAN- abdominal pain This is a 79 year old female presents to ER for acute abdominal pain. reports pain started about 2 days ago, today with worsen unbearable pain. She tried to eat cereal for breakfast, hasn't been able to eat or drink fluids since this then due to pain. ER work up CBC WBC 13.5, hgb 12.6, hct 38.5, plts 361. Chemistries abnormal Lipase 2750. Imaging CT abdomen-pelvis : mild acute pancreatitis, cholelithiasis. Will plan to admit to Med-Surg for further care and treatment. PANCREATITIS WITHOUT NECROSIS -keep NPO, may have ice chips -IV fluids Normal Saline 125ml/hr -Pain management -am labs: CBC, BMP, LIPASE, AMYLASE HYPERTENSION.HISTORY OF CORONARY ARTERY DISEASE-denies symptoms of exertional chest pain or pressure -Continue current therapy LOWER LEG EDEMA -extra dose of Lasix 20 mg po tonight -am dose of Lasix 20 mg po daily -Potassium po daily HYPOTHROIDISM -Synthyroid daily MAINTENANCE ISSUES -DVT prophylaxis; Lovenox 30 mg subcut daily -GI prophylaxis; Protonix 40 mg IV daily -[place] catheter; not indicated at this time -Nutrition; NPO -Nicotine dependence; not required CODE STATUS-FULL ADMISSION STATUS-patient will be admitted to inpatient status, expect at least a 2 night hospital stay for evaluation and management of problems as outlined above. At the time of this admission I do not reasonably expected evaluation and management of this problem will require more than a 96 hour hospital stay. DISPOSITION-anticipate discharge to home after the hospital stay. PRIMARY CARE PROVIDER- Dr. hSankar HOSPITALIST - Dr. Child - Mortality Measure Prognosis:: Good
[2019-08-17] MEDS: Sodium Chloride 0.9% 1,000 ML IV SCH (20:21)
[2019-08-17] MEDS ORDERED: Pneumococcal Polyvalent-23 Vaccine 0.5 ML SDV SUBCUT ONE (20:32)
[2019-08-17] MEDS: Pantoprazole 40 MG Vial IV SCH (20:48)
[2019-08-17] MEDS: traMADol 50 MG Tab PO SCH (20:48)
[2019-08-17] MEDS: rOPINIRole 0.5 MG Tab PO SCH (20:49)
[2019-08-17] MEDS: Zolpidem 5 MG Tab PO PRN (23:52)
[2019-08-17] MEDS: oxyCODONE 5 MG Tab PO PRN (23:54)
[2019-08-18] MEDS: oxyCODONE 5 MG Tab PO PRN ×3 (03:46→17:59)
[2019-08-18] MEDS: Sodium Chloride 0.9% 1,000 ML IV SCH ×3 (03:48→19:22)
[2019-08-18] MEDS: traZODone 50 MG Tab PO SCH ×2 (08:16→21:08)
[2019-08-18] MEDS: traMADol 50 MG Tab PO SCH ×2 (08:30→21:11)
[2019-08-18] MEDS: Enoxaparin 40 MG/0.4 ML Syringe SUBCUT SCH (09:26)
[2019-08-18] MEDS: rOPINIRole 0.5 MG Tab PO SCH ×3 (09:28→21:08)
[2019-08-18] MEDS: Levothyroxine 100 MCG Tab PO SCH (09:28)
[2019-08-18] MEDS: Potassium Chloride 10 MEQ Cap.ER PO SCH (09:28)
--- NOTE | 2019-08-18 10:42 | PCM.PN ---
- General Info Date of Service: 08/18/19 Subjective Update: There were no acute events overnight following discharge. Abdominal pain is mildly improved but not resolved. She did not have any fevers. She does not have any nausea. She does not feel short of breath. Lipase level has decreased since admission area vital signs have been stable. Functional Status: Reports: Pain Controlled - Review of Systems General: Denies: Fever Gastrointestinal: Reports: Abdominal Pain. Denies: Nausea - Patient Data Vitals - Most Recent: Last Vital Signs Temp 36.7 C 08/18/19 07:28 Pulse 63 08/18/19 07:28 Resp 16 08/18/19 07:28 BP 154/73 H 08/18/19 07:28 Pulse Ox 100 08/18/19 07:28 Weight - Most Recent: 68.8 kg I&O - Last 24 Hours: Intake & Output 08/17/19 08/18/19 08/18/19 22:59 06:59 14:59 Intake Total 1326 Output Total 225 350 Balance -225 976 Lab Results Last 24 Hours: Laboratory Results - last 24 hr 08/17/19 08/17/19 08/17/19 Range/Units 16:40 16:40 17:20 WBC 13.6 H (4.5-11.0) K/uL RBC 3.71 (3.30-5.50) M/uL Hgb 12.6 D (12.0-15.0) g/dL Hct 38.5 (36.0-48.0) % MCV 104 H (80-98) fL MCH 34 H (27-31) pg MCHC 33 (32-36) % Plt Count 361 (150-400) K/uL Neut % (Auto) (36-66) % Lymph % (Auto) (24-44) % Gates % (Auto) (2-6) % Eos % (Auto) (2-4) % Baso % (Auto) (0-1) % Sodium 138 L (140-148) mmol/L Potassium 4.3 (3.6-5.2) mmol/L Chloride 101 (100-108) mmol/L Carbon Dioxide 29 (21-32) mmol/L Anion Gap 12.3 (5.0-14.0) mmol/L BUN 16 (7-18) mg/dL Creatinine 0.9 (0.6-1.0) mg/dL Est Cr Clr Drug Dosing 36.41 mL/min Estimated GFR (MDRD) > 60 (>60) Glucose 101 (74-106) mg/dL Calcium 8.4 L (8.5-10.1) mg/dL Total Bilirubin 0.6 (0.2-1.0) mg/dL AST 70 H (15-37) U/L ALT 50 (12-78) U/L Alkaline Phosphatase 188 H (46-116) U/L Total Protein 6.3 L (6.4-8.2) g/dL Albumin 3.2 L (3.4-5.0) g/dL Globulin 3.1 (2.3-3.5) g/dL Albumin/Globulin Ratio 1.0 L (1.2-2.2) Triglycerides 91 (15-150) mg/dL Cholesterol 190 (0-200) mg/dL LDL Cholesterol Direct 44 (0-100) mg/dL HDL Cholesterol 120 H (40-60) mg/dL Amylase (25-115) U/L Lipase 2750 H (73-393) U/L 08/17/19 08/18/19 08/18/19 Range/Units 19:38 04:37 04:37 WBC 10.3 (4.5-11.0) K/uL RBC 3.23 L (3.30-5.50) M/uL Hgb 11.0 L (12.0-15.0) g/dL Hct 33.9 L (36.0-48.0) % MCV 105 H (80-98) fL MCH 34 H (27-31) pg MCHC 32 (32-36) % Plt Count 314 (150-400) K/uL Neut % (Auto) 73 H (36-66) % Lymph % (Auto) 17 L (24-44) % Gates % (Auto) 10 H (2-6) % Eos % (Auto) 0 L (2-4) % Baso % (Auto) 0 (0-1) % Sodium 138 L (140-148) mmol/L Potassium 4.0 (3.6-5.2) mmol/L Chloride 105 (100-108) mmol/L Carbon Dioxide 26 (21-32) mmol/L Anion Gap 11.0 (5.0-14.0) mmol/L BUN 14 (7-18) mg/dL Creatinine 0.6 (0.6-1.0) mg/dL Est Cr Clr Drug Dosing 54.61 mL/min Estimated GFR (MDRD) > 60 (>60) Glucose 101 (74-106) mg/dL Calcium 7.5 L (8.5-10.1) mg/dL Total Bilirubin (0.2-1.0) mg/dL AST (15-37) U/L ALT (12-78) U/L Alkaline Phosphatase (46-116) U/L Total Protein (6.4-8.2) g/dL Albumin (3.4-5.0) g/dL Globulin (2.3-3.5) g/dL Albumin/Globulin Ratio (1.2-2.2) Triglycerides (15-150) mg/dL Cholesterol (0-200) mg/dL LDL Cholesterol Direct (0-100) mg/dL HDL Cholesterol (40-60) mg/dL Amylase 336 H 281 H (25-115) U/L Lipase 1346 H (73-393) U/L Med Orders - Current: Current Medications Acetaminophen (Tylenol) 650 mg PO Q4H PRN PRN Reason: Pain (Mild 1-3)/fever Albuterol (Proventil Neb Soln) 2.5 mg NEB Q4H PRN PRN Reason: Shortness Of Breath/wheezing Bisacodyl (Dulcolax) 5 mg PO DAILY PRN PRN Reason: Constipation Docusate Sodium (Colace) 100 mg PO BID PRN PRN Reason: Constipation Enoxaparin Sodium (Lovenox) 40 mg SUBCUT DAILY [facility] Last Admin: 08/18/19 09:26 Dose: 40 mg Furosemide (Lasix) 20 mg PO DAILY PRN PRN Reason: Edema Sodium Chloride (Normal Saline) 1,000 mls @ 125 mls/hr IV ASDIRECTED [facility] Last Admin: 08/18/19 03:48 Dose: 125 mls/hr Levothyroxine Sodium (Synthroid) 100 mcg PO DAILY [facility] Last Admin: 08/18/19 09:28 Dose: 100 mcg Lorazepam (Ativan) 1 mg PO BID PRN PRN Reason: Anxiety Morphine Sulfate (Morphine) 2 mg IVPUSH Q2H PRN PRN Reason: Pain (severe 7-10) Ondansetron HCl (Zofran Odt) 4 mg PO Q6H PRN PRN Reason: Nausea able to take PO Oxycodone HCl (Oxycodone) 5 mg PO Q4H PRN PRN Reason: Pain (moderate 4-6) Last Admin: 08/18/19 03:46 Dose: 5 mg Pantoprazole Sodium (Protonix Iv) 40 mg IV BEDTIME [facility] Last Admin: 08/17/19 20:48 Dose: 40 mg Potassium Chloride (Potassium Chloride) 10 meq PO DAILY [facility] Last Admin: 08/18/19 09:28 Dose: 10 meq Ropinirole HCl (Requip) 0.5 mg PO TID [facility] Last Admin: 08/18/19 09:28 Dose: 0.5 mg Tramadol HCl (Ultram) 50 mg PO BID [facility] Last Admin: 08/18/19 08:30 Dose: 50 mg Trazodone HCl (Trazodone) 100 mg PO BEDTIME [facility] Last Admin: 08/18/19 08:16 Dose: Not Given Zolpidem Tartrate (Ambien) 5 mg PO BEDTIME PRN PRN Reason: Insomnia Last Admin: 08/17/19 23:52 Dose: 5 mg Discontinued Medications Hydromorphone HCl (Dilaudid) 0.25 mg IVPUSH ONETIME ONE Stop: 08/17/19 16:27 Last Admin: 08/17/19 16:52 Dose: 0.25 mg Hydromorphone HCl (Dilaudid) 0.5 mg IVPUSH ONETIME ONE Stop: 08/17/19 19:05 Last Admin: 08/17/19 19:17 Dose: 0.5 mg Sodium Chloride (Normal Saline) 100 mls @ 3.5 mls/sec IV ONETIME ONE Stop: 08/17/19 16:38 Last Admin: 08/17/19 17:13 Dose: 2.5 mls/sec Lactated Ringer's (Ringers, Lactated) 1,000 mls @ 100 mls/hr IV ASDIRECTED [facility] Iopamidol (Isovue-300 (61%)) 100 ml IV . DIRECTED [facility] Last Admin: 08/17/19 17:13 Dose: 100 ml Pneumococcal Polyvalent Vaccine (Pneumovax 23) 0.5 ml SUBCUT .ONCE ONE Stop: 08/17/19 20:33 Last Admin: 08/17/19 21:58 Dose: Not Given Pneumococcal Polyvalent Vaccine (Pneumovax 23) 0.5 ml SUBCUT .ONCE ONE Stop: 08/19/19 10:01 Sodium Chloride (Saline Flush) 10 ml FLUSH ONETIME ONE Stop: 08/17/19 16:38 Last Admin: 08/17/19 17:13 Dose: 10 ml - Exam Quality Assessment: No: Supplemental Oxygen General: Alert, Oriented, Cooperative, No Acute Distress Lungs: Clear to Auscultation, Normal Respiratory Effort Cardiovascular: Regular Rate, Regular Rhythm GI/Abdominal Exam: Normal Bowel Sounds, Soft, No Distention, Tender Extremities: No Pedal Edema Psy/Mental Status: Alert, Normal Affect - Problem List Review Problem List Initiated/Reviewed/Updated: Yes - My Orders Last 24 Hours: My Active Orders 08/18/19 09:11 Discontinue Telemetry Monitoring [Cardiac Monitoring Discontinue] [RC] Click to Edit 08/19/19 05:00 CBC W/O DIFF,HEMOGRAM [HEME] Timed (1) COMPREHENSIVE METABOLIC PN,CMP [CHEM] Timed LIPASE [CHEM] Timed - Plan Plan:: ASSESSMENT AND PLAN- ACUTE PANCREATITIS WITHOUT NECROSIS - patient reports only minimal alcohol use but her son says that she has one or 2 drinks daily. Gallstones could also be considered with several small gallstones noted in the gallbladder though she did not have any changes with hepatic panel laboratory testing. No obvious culprit medications. Clinically improving and lipase decreasing. -keep NPO, may have ice chips -Continue IV fluids -Pain and nausea management -Repeat lipase in the morning HYPERTENSION, HISTORY OF CORONARY ARTERY DISEASE - no active symptoms. Vitals stable. -Continue home medications LOWER LEG EDEMA - mild and stable. -am dose of Lasix 20 mg po daily -Potassium supplement daily HYPOTHROIDISM - stable -Synthyroid daily MAINTENANCE ISSUES -DVT prophylaxis; enoxaparin 30 mg subcut daily -GI prophylaxis; Protonix 40 mg IV daily -Cleveland catheter; not indicated at this time -Nutrition; NPO DISPOSITION - anticipate discharge to home after the hospital stay. Adrian Child M.D.
[2019-08-18] MEDS: Docusate Sodium 100 MG Cap PO PRN (14:14)
[2019-08-18] MEDS: LORazepam 1 MG Tab PO PRN (19:43)
[2019-08-18] MEDS: Pantoprazole 40 MG Vial IV SCH (21:05)
[2019-08-19] MEDS: Sodium Chloride 0.9% 1,000 ML IV SCH ×2 (03:39→12:28)
[2019-08-19] MEDS: Docusate Sodium 100 MG Cap PO PRN ×2 (07:33→20:15)
[2019-08-19] MEDS: Enoxaparin 40 MG/0.4 ML Syringe SUBCUT SCH (09:09)
[2019-08-19] MEDS: Levothyroxine 100 MCG Tab PO SCH (09:11)
[2019-08-19] MEDS: Potassium Chloride 10 MEQ Cap.ER PO SCH (09:11)
[2019-08-19] MEDS: rOPINIRole 0.5 MG Tab PO SCH (09:11)
[2019-08-19] MEDS: traMADol 50 MG Tab PO SCH ×2 (09:12→20:15)
[2019-08-19] MEDS: LORazepam 1 MG Tab PO PRN ×2 (09:42→21:26)
[2019-08-19] MEDS ORDERED: Pneumococcal Polyvalent-23 Vaccine 0.5 ML SDV SUBCUT ONE (10:00)
--- NOTE | 2019-08-19 13:14 | PCM.PN ---
- General Info Date of Service: 08/19/19 Subjective Update: Ms. Sandoval is experienced further improvement over the last 24 hours she has mild persistent nausea and abdominal pain. Severe pain and vomiting have resolved. Lipase level significantly improved but still remains mildly elevated. Functional Status: Reports: Tolerating Diet, Urinating - Review of Systems General: Reports: Weakness. Denies: Fever, Chills Pulmonary: Reports: No Symptoms Cardiovascular: Reports: No Symptoms Gastrointestinal: Reports: Abdominal Pain, Nausea. Denies: Difficulty Swallowing, Hematochezia, Melena, Vomiting - Patient Data Vitals - Most Recent: Last Vital Signs Temp 97.9 F 08/19/19 11:47 Pulse 79 08/19/19 07:00 Resp 16 08/19/19 11:47 BP 148/78 H 08/19/19 11:47 Pulse Ox 94 L 08/19/19 11:47 Weight - Most Recent: 151 lb 10.848 oz I&O - Last 24 Hours: Intake & Output 08/18/19 08/19/19 08/19/19 22:59 06:59 14:59 Intake Total 436 1616 410 Output Total 450 475 425 Balance -14 1141 -15 Lab Results Last 24 Hours: Laboratory Results - last 24 hr 08/19/19 08/19/19 Range/Units 05:07 05:07 WBC 8.1 (4.5-11.0) K/uL RBC 2.97 L (3.30-5.50) M/uL Hgb 10.0 L (12.0-15.0) g/dL Hct 31.9 L (36.0-48.0) % MCV 107 H (80-98) fL MCH 34 H (27-31) pg MCHC 31 L (32-36) % Plt Count 275 (150-400) K/uL Sodium 139 L (140-148) mmol/L Potassium 3.5 L (3.6-5.2) mmol/L Chloride 107 (100-108) mmol/L Carbon Dioxide 22 (21-32) mmol/L Anion Gap 13.5 (5.0-14.0) mmol/L BUN 13 (7-18) mg/dL Creatinine 0.6 (0.6-1.0) mg/dL Est Cr Clr Drug Dosing 54.61 mL/min Estimated GFR (MDRD) > 60 (>60) Glucose 72 L (74-106) mg/dL Calcium 7.4 L (8.5-10.1) mg/dL Total Bilirubin 0.7 (0.2-1.0) mg/dL AST 22 (15-37) U/L ALT 25 (12-78) U/L Alkaline Phosphatase 125 H (46-116) U/L Total Protein 4.9 L (6.4-8.2) g/dL Albumin 2.1 L (3.4-5.0) g/dL Globulin 2.8 (2.3-3.5) g/dL Albumin/Globulin Ratio 0.8 L (1.2-2.2) Lipase 794 H (73-393) U/L Med Orders - Current: Current Medications Acetaminophen (Tylenol) 650 mg PO Q4H PRN PRN Reason: Pain (Mild 1-3)/fever Albuterol (Proventil Neb Soln) 2.5 mg NEB Q4H PRN PRN Reason: Shortness Of Breath/wheezing Bisacodyl (Dulcolax) 5 mg PO DAILY PRN PRN Reason: Constipation Docusate Sodium (Colace) 100 mg PO BID PRN PRN Reason: Constipation Last Admin: 08/19/19 07:33 Dose: 100 mg Enoxaparin Sodium (Lovenox) 40 mg SUBCUT DAILY [facility] Last Admin: 08/19/19 09:09 Dose: 40 mg Furosemide (Lasix) 20 mg PO DAILY PRN PRN Reason: Edema Levothyroxine Sodium (Synthroid) 100 mcg PO ACBREAKFAST [facility] Lorazepam (Ativan) 1 mg PO BID PRN PRN Reason: Anxiety Last Admin: 08/19/19 09:42 Dose: 1 mg Morphine Sulfate (Morphine) 2 mg IVPUSH Q2H PRN PRN Reason: Pain (severe 7-10) Ondansetron HCl (Zofran Odt) 4 mg PO Q6H PRN PRN Reason: Nausea able to take PO Oxycodone HCl (Oxycodone) 5 mg PO Q4H PRN PRN Reason: Pain (moderate 4-6) Last Admin: 08/18/19 17:59 Dose: 5 mg Pantoprazole Sodium (Protonix Iv) 40 mg IV BEDTIME [facility] Last Admin: 08/18/19 21:05 Dose: 40 mg Potassium Chloride (Potassium Chloride) 10 meq PO DAILY [facility] Last Admin: 08/19/19 09:11 Dose: 10 meq Ropinirole HCl (Requip) 0.5 mg PO BEDTIME [facility] Tramadol HCl (Ultram) 50 mg PO BID [facility] Last Admin: 08/19/19 09:12 Dose: 50 mg Trazodone HCl (Trazodone) 100 mg PO BEDTIME [facility] Last Admin: 08/18/19 21:08 Dose: 100 mg Zolpidem Tartrate (Ambien) 5 mg PO BEDTIME PRN PRN Reason: Insomnia Last Admin: 08/17/19 23:52 Dose: 5 mg Discontinued Medications Hydromorphone HCl (Dilaudid) 0.25 mg IVPUSH ONETIME ONE Stop: 08/17/19 16:27 Last Admin: 08/17/19 16:52 Dose: 0.25 mg Hydromorphone HCl (Dilaudid) 0.5 mg IVPUSH ONETIME ONE Stop: 08/17/19 19:05 Last Admin: 08/17/19 19:17 Dose: 0.5 mg Sodium Chloride (Normal Saline) 100 mls @ 3.5 mls/sec IV ONETIME ONE Stop: 08/17/19 16:38 Last Admin: 08/17/19 17:13 Dose: 2.5 mls/sec Lactated Ringer's (Ringers, Lactated) 1,000 mls @ 100 mls/hr IV ASDIRECTED [facility] Sodium Chloride (Normal Saline) 1,000 mls @ 125 mls/hr IV ASDIRECTED [facility] Last Admin: 08/19/19 12:28 Dose: 125 mls/hr Iopamidol (Isovue-300 (61%)) 100 ml IV . DIRECTED [facility] Last Admin: 08/17/19 17:13 Dose: 100 ml Levothyroxine Sodium (Synthroid) 100 mcg PO DAILY [facility] Last Admin: 08/19/19 09:11 Dose: 100 mcg Pneumococcal Polyvalent Vaccine (Pneumovax 23) 0.5 ml SUBCUT .ONCE ONE Stop: 08/17/19 20:33 Last Admin: 08/17/19 21:58 Dose: Not Given Pneumococcal Polyvalent Vaccine (Pneumovax 23) 0.5 ml SUBCUT .ONCE ONE Stop: 08/19/19 10:01 Ropinirole HCl (Requip) 0.5 mg PO TID [facility] Last Admin: 08/19/19 09:11 Dose: Not Given Sodium Chloride (Saline Flush) 10 ml FLUSH ONETIME ONE Stop: 08/17/19 16:38 Last Admin: 08/17/19 17:13 Dose: 10 ml - Exam Quality Assessment: DVT Prophylaxis General: Alert, Oriented, Cooperative, Mild Distress Lungs: Clear to Auscultation, Normal Respiratory Effort Cardiovascular: Regular Rate, Regular Rhythm, No Murmurs GI/Abdominal Exam: Soft, No Organomegaly, Tender. No: Distended, Guarding, Rigid, Rebound Extremities: Non-Tender, No Pedal Edema - Problem List Review Problem List Initiated/Reviewed/Updated: Yes - My Orders Last 24 Hours: My Active Orders 08/19/19 13:10 Consult to Physical Therapy [PT Evaluation and Treatment] [CONS] Routine Convert IV to Saline Lock [OM.PC] Routine 08/19/19 21:00 rOPINIRole [Requip] 0.5 mg PO BEDTIME 08/19/19 Breakfast GI Soft Low Fiber [Soft Diet] [DIET] 08/20/19 05:00 BASIC METABOLIC PANEL,BMP [CHEM] Timed LIPASE [CHEM] Timed - Plan Plan:: ASSESSMENT AND PLAN- ACUTE PANCREATITIS WITHOUT NECROSIS - patient reports only minimal alcohol use but her son says that she has one or 2 drinks daily. Gallstones could also be considered with several small gallstones noted in the gallbladder though she did not have any changes with hepatic panel laboratory testing. No obvious culprit medications. Other improvement in symptoms in lipase over the last 24 hours. -Soft diet -Daily and lock IV -Pain and nausea management -Repeat lipase in the morning HYPERTENSION, HISTORY OF CORONARY ARTERY DISEASE - no active symptoms. Vitals stable. -Continue home medications LOWER LEG EDEMA - resolved HYPOTHROIDISM - stable -Synthyroid daily MAINTENANCE ISSUES -DVT prophylaxis; enoxaparin 30 mg subcut daily -GI prophylaxis; Protonix 40 mg po daily -[place] catheter; not indicated at this time -Nutrition; NPO DISPOSITION - anticipate discharge to home after the hospital stay.
[2019-08-19] MEDS ORDERED: Potassium Chloride 20 MEQ Tab.ER PO ONE ×2 (13:30→17:00)
[2019-08-19] MEDS ORDERED: Pantoprazole 40 MG Tab.CR PO SCH (16:30)
[2019-08-19] MEDS: Zolpidem 5 MG Tab PO PRN (20:15)
[2019-08-19] MEDS: traZODone 50 MG Tab PO SCH (20:15)
[2019-08-19] MEDS ORDERED: rOPINIRole 0.5 MG Tab PO SCH (21:00)
[2019-08-20 02:41] VITALS: PULSE 77
[2019-08-20] MEDS ORDERED: Levothyroxine 100 MCG Tab PO SCH (07:30)
[2019-08-20 07:54] VITALS: BP 166/90
[2019-08-20] MEDS: Enoxaparin 40 MG/0.4 ML Syringe SUBCUT SCH (10:38)
[2019-08-20] MEDS: Potassium Chloride 10 MEQ Cap.ER PO SCH (10:40)
[2019-08-20] MEDS: traMADol 50 MG Tab PO SCH (10:40)
--- NOTE | 2019-08-20 11:37 | PCM.DCSUM1 ---
Discharge Summary - Hospital Course Brief History: Ms. Sandoval is a 79 year old woman who was admitted through the emergency department with abdominal pain and nausea secondary to acute pancreatitis. - Discharge Data Discharge Date: 08/20/19 Discharge Disposition: Home, Self-Care 01 Condition: Fair - Referral to Home Health Primary Care Physician: Conor Shankar MD - Discharge Diagnosis/Problem(s) (1) Pancreatitis SNOMED Code(s): 96107525 ICD Code: K85.90 - ACUTE PANCREATITIS WITHOUT NECROSIS OR INFECTION, UNSP Status: Acute Priority: High Current Visit: Yes Qualifiers: Chronicity: acute Pancreatitis type: unspecified pancreatitis type Acute pancreatitis complication: no infection or necrosis Qualified Code(s): K85.90 - Acute pancreatitis without necrosis or infection, unspecified (2) Hypothyroidism SNOMED Code(s): 07276298 ICD Code: E03.9 - HYPOTHYROIDISM, UNSPECIFIED Status: Acute Priority: Low Current Visit: Yes - Patient Summary/Data Consults: Consultations 08/19/19 13:10 Consult to Physical Therapy [PT Evaluation and Treatment] [CONS] Routine Please Evaluate and Treat. PT Reason for Consult: Weakness This query below is only for informational purposes and is not editable. Admission Diagnosis/Problem: Acute pancreatitis Hospital Course: Ms. Sandoval is a 79-year-old woman who was admitted through the emergency department with nausea and abdominal pain secondary to acute pancreatitis. On admission she denied any previous history of pancreatitis but did report alcohol use, occasionally. Her son was able to provide additional information and did report that she uses alcohol on a daily basis. Lipase level was elevated at 2700, CT scan of the abdomen pelvis showed evidence of inflammation in the distal body and tail of the pancreas consistent with pancreatitis. Gallstones were noted in the gallbladder which were relatively small and there was no evidence of ductal dilatation. Was felt most likely that the pancreatitis was secondary to her alcohol use. On admission she was treated with pain medication and medication for nausea as needed as well as IV fluids for hydration. Initially she was kept nothing by mouth and on the day prior to discharge was started on a soft diet which she tolerated without significant difficulty. On the day prior to charge, lipase level had dropped to 800 and she reported resolution of nausea and significant improvement in abdominal pain. On the day of discharge she reported no abdominal pain or nausea, lipase level had increased slightly to 1200. She is been instructed to avoid all further alcohol use. She does have a recent history of progressive weakness with frequent falls at home. She was offered care home rehabilitation stay as well as home care, both of which she refused. She will except outpatient physical therapy. Activity will be as tolerated and she will resume her usual diet. Follow-up appointment will be scheduled with Dr. Shankar within one week, lipase level should be obtained at the time of follow-up appointment. She will also be scheduled for outpatient physical therapy hopefully improve overall strength. - Patient Instructions Diet: Usual Diet as Tolerated Activity: As Tolerated Other/Special Instructions: Please schedule follow-up appointment with Dr. Shankar within one week, lipase level should be obtained at the time of follow- up appointment. Please schedule outpatient physical therapy to work and overall strengthening with recent history of falls. Patient has been instructed to avoid all further alcohol use. - Discharge Plan *PRESCRIPTION DRUG MONITORING PROGRAM REVIEWED*: Not Applicable *COPY OF PRESCRIPTION DRUG MONITORING REPORT IN PATIENT SANGEETA: Not Applicable Home Medications: Home Meds B-Complex with Vitamin C [Super B Complex-Vitamin C] 1 tab PO DAILY 10/28/15 [ History] Biotin 5,000 mcg PO DAILY 10/28/15 [History] Cholecalciferol (Vitamin D3) [Vitamin D3] 2,000 unit PO DAILY 10/28/15 [History] Cyanocobalamin (Vitamin B-12) [Vitamin B-12] 2,500 mcg SL DAILY 10/28/15 [ History] LORazepam [Ativan] 1 mg PO BID PRN 10/28/15 [History] Potassium Chloride [Klor-Con 10] 10 meq PO DAILY 10/28/15 [History] Vitamin E 400 unit PO DAILY 10/28/15 [History] Calcitonin ([place]) [Miacalcin Nasal [place]] 1 spray TWIN DAILY 02/19/18 [History] Calcium Carbonate/Vitamin D3 [Calcium Carbonate/Vitamin D 600 MG-200 Unit] 1, 000 - 1,200 mg PO BID 02/19/18 [History] Fluticasone Propionate [Flonase] 2 spray TWIN DAILY 02/19/18 [History] Levothyroxine Sodium [Synthroid] 100 mcg PO DAILY 02/19/18 [History] rOPINIRole HCl [Requip] 0.5 mg PO DAILY 02/19/18 [History] traZODone HCl [Trazodone HCl] 100 mg PO BEDTIME 02/19/18 [History] Furosemide 20 mg PO DAILY PRN 08/17/19 [History] Pantoprazole Sodium [Protonix] 40 mg PO DAILY 08/17/19 [History] traMADol HCl [Tramadol HCl] 50 mg PO BID 08/17/19 [History] Referrals: Conor Shankar MD [Primary Care Provider] - 08/30/19 1:30 pm (Please arrive 15 minutes early to register for your appointment.) Dariel Peña PT [Physical Therapist] - 08/26/19 1:00 pm (Please arrive 30 minutes early to register and fill out paper work for your Physical Therapy appointment. Please register at the ER desk for appointment.) - Discharge Summary/Plan Comment DC Time >30 min.: No - Patient Data Vitals - Most Recent: Last Vital Signs Temp 97.7 F 08/20/19 07:00 Pulse 77 08/20/19 07:00 Resp 18 08/20/19 07:00 BP 166/90 H 08/20/19 07:53 Pulse Ox 95 08/20/19 07:00 Weight - Most Recent: 151 lb I&O - Last 24 hours: Intake & Output 08/19/19 08/20/19 08/20/19 22:59 06:59 14:59 Intake Total 810 300 240 Output Total 350 325 200 Balance 460 -25 40 Lab Results - Last 24 hrs: Laboratory Results - last 24 hr 08/20/19 Range/Units 04:31 Sodium 137 L (140-148) mmol/L Potassium 3.6 (3.6-5.2) mmol/L Chloride 106 (100-108) mmol/L Carbon Dioxide 22 (21-32) mmol/L Anion Gap 12.6 (5.0-14.0) mmol/L BUN 11 (7-18) mg/dL Creatinine 0.6 (0.6-1.0) mg/dL Est Cr Clr Drug Dosing 54.61 mL/min Estimated GFR (MDRD) > 60 (>60) Glucose 112 H (74-106) mg/dL Calcium 8.0 L (8.5-10.1) mg/dL Lipase 1264 H (73-393) U/L Med Orders - Current: Current Medications Acetaminophen (Tylenol) 650 mg PO Q4H PRN PRN Reason: Pain (Mild 1-3)/fever Albuterol (Proventil Neb Soln) 2.5 mg NEB Q4H PRN PRN Reason: Shortness Of Breath/wheezing Bisacodyl (Dulcolax) 5 mg PO DAILY PRN PRN Reason: Constipation Docusate Sodium (Colace) 100 mg PO BID PRN PRN Reason: Constipation Last Admin: 08/19/19 20:15 Dose: 100 mg Enoxaparin Sodium (Lovenox) 40 mg SUBCUT DAILY [facility] Last Admin: 08/20/19 10:38 Dose: Not Given Furosemide (Lasix) 20 mg PO DAILY PRN PRN Reason: Edema Levothyroxine Sodium (Synthroid) 100 mcg PO ACBREAKFAST [facility] Last Admin: 08/20/19 10:40 Dose: 100 mcg Lorazepam (Ativan) 1 mg PO BID PRN PRN Reason: Anxiety Last Admin: 08/19/19 21:26 Dose: 1 mg Ondansetron HCl (Zofran Odt) 4 mg PO Q6H PRN PRN Reason: Nausea able to take PO Oxycodone HCl (Oxycodone) 5 mg PO Q4H PRN PRN Reason: Pain (moderate 4-6) Last Admin: 08/18/19 17:59 Dose: 5 mg Pantoprazole Sodium (Protonix) 40 mg PO Q24H [facility] Last Admin: 08/19/19 16:01 Dose: 40 mg Potassium Chloride (Potassium Chloride) 10 meq PO DAILY [facility] Last Admin: 08/20/19 10:40 Dose: 10 meq Ropinirole HCl (Requip) 0.5 mg PO BEDTIME [facility] Last Admin: 08/19/19 20:14 Dose: 0.5 mg Tramadol HCl (Ultram) 50 mg PO BID [facility] Last Admin: 08/20/19 10:40 Dose: Not Given Trazodone HCl (Trazodone) 100 mg PO BEDTIME [facility] Last Admin: 08/19/19 20:15 Dose: 100 mg Zolpidem Tartrate (Ambien) 5 mg PO BEDTIME PRN PRN Reason: Insomnia Last Admin: 08/19/19 20:15 Dose: 5 mg Discontinued Medications Hydromorphone HCl (Dilaudid) 0.25 mg IVPUSH ONETIME ONE Stop: 08/17/19 16:27 Last Admin: 08/17/19 16:52 Dose: 0.25 mg Hydromorphone HCl (Dilaudid) 0.5 mg IVPUSH ONETIME ONE Stop: 08/17/19 19:05 Last Admin: 08/17/19 19:17 Dose: 0.5 mg Sodium Chloride (Normal Saline) 100 mls @ 3.5 mls/sec IV ONETIME ONE Stop: 08/17/19 16:38 Last Admin: 08/17/19 17:13 Dose: 2.5 mls/sec Lactated Ringer's (Ringers, Lactated) 1,000 mls @ 100 mls/hr IV ASDIRECTED RADHA Sodium Chloride (Normal Saline) 1,000 mls @ 125 mls/hr IV ASDIRECTED [facility] Last Admin: 08/19/19 12:28 Dose: 125 mls/hr Iopamidol (Isovue-300 (61%)) 100 ml IV . DIRECTED [facility] Last Admin: 08/17/19 17:13 Dose: 100 ml Levothyroxine Sodium (Synthroid) 100 mcg PO DAILY [facility] Last Admin: 08/19/19 09:11 Dose: 100 mcg Morphine Sulfate (Morphine) 2 mg IVPUSH Q2H PRN PRN Reason: Pain (severe 7-10) Pantoprazole Sodium (Protonix Iv) 40 mg IV BEDTIME [facility] Last Admin: 08/18/19 21:05 Dose: 40 mg Pneumococcal Polyvalent Vaccine (Pneumovax 23) 0.5 ml SUBCUT .ONCE ONE Stop: 08/17/19 20:33 Last Admin: 08/17/19 21:58 Dose: Not Given Pneumococcal Polyvalent Vaccine (Pneumovax 23) 0.5 ml SUBCUT .ONCE ONE Stop: 08/19/19 10:01 Potassium Chloride (Klor-Con M20) 40 meq PO ONETIME ONE Stop: 08/19/19 13:31 Last Admin: 08/19/19 16:01 Dose: 40 meq Potassium Chloride (Klor-Con M20) 40 meq PO ONETIME ONE Stop: 08/19/19 17:01 Last Admin: 08/19/19 17:57 Dose: Not Given Ropinirole HCl (Requip) 0.5 mg PO TID [facility] Last Admin: 08/19/19 09:11 Dose: Not Given Sodium Chloride (Saline Flush) 10 ml FLUSH ONETIME ONE Stop: 08/17/19 16:38 Last Admin: 08/17/19 17:13 Dose: 10 ml - Exam General: Reports: Alert, Oriented, Cooperative, No Acute Distress Lungs: Reports: Clear to Auscultation, Normal Respiratory Effort Cardiovascular: Reports: Regular Rate, Regular Rhythm, No Murmurs GI/Abdominal Exam: Soft, Non-Tender, No Organomegaly, No Distention
== END 2019-08-20 11:30 | disposition home or self-care (01) | DRG 439 ==
LOC: JP.ED 15:32 → JP.MS 18:42
PROVIDERS: ADMIT Internal Medicine; ATTEND Hospitalist
DX: K85.90 Acute pancreatitis without necrosis or infection, unspecified (principal); K85.20 Alcohol induced acute pancreatitis without necrosis or infection; F10.988 Alcohol use, unspecified with other alcohol-induced disorder; K80.20 Calculus of gallbladder without cholecystitis without obstruction; E03.9 Hypothyroidism, unspecified; M19.90 Unspecified osteoarthritis, unspecified site; M81.0 Age-related osteoporosis without current pathological fracture; F41.9 Anxiety disorder, unspecified; F32.9 Major depressive disorder, single episode, unspecified; E66.9 Obesity, unspecified; E20.9 Hypoparathyroidism, unspecified; E53.8 Deficiency of other specified B group vitamins; R60.0 Localized edema; I10 Essential (primary) hypertension; I25.10 Atherosclerotic heart disease of native coronary artery without angina pectoris; Z88.5 Allergy status to narcotic agent; Z88.8 Allergy status to other drugs, medicaments and biological substances; Z79.890 Hormone replacement therapy; Z79.899 Other long term (current) drug therapy; Z90.710 Acquired absence of both cervix and uterus; Z90.89 Acquired absence of other organs; Z87.891 Personal history of nicotine dependence; Z68.29 Body mass index [BMI] 29.0-29.9, adult
CPT/HCPCS: 36415; 74160; 80053; 80061; 83690; 85027; 96374; 99285; J1170; J7030; Q9967; 80048; 82150; 85025; 94762; 97162-GP; 97530-GP; A9270-GY; C9113; J1650

== ENCOUNTER 2019-11-06 10:37 | Inpatient (IN) | payer MEDICARE ==
[2019-11-06] MEDS ORDERED: Sodium Chloride 0.9% 1,000 ML IV SCH ×2 (12:00→15:00)
--- NOTE | 2019-11-06 12:09 | EDM.PDOC ---
ED HPI GENERAL MEDICAL PROBLEM - General Chief Complaint: General Stated Complaint: MEDICAL VIA [facility] Time Seen by Provider: 11/06/19 12:03 Source of Information: Reports: Patient History Limitations: Reports: No Limitations - History of Present Illness INITIAL COMMENTS - FREE TEXT/NARRATIVE: pt arrived with a history of multiple falls. She fell at [facility] 2 days ago and hit her head and face. She was not checked out aftyer that. She fell again last nite and she was not able to get up. She did lay on the floor all nite. Onset: Other (pt fell last nite and she was not able to get up so she did lay there all nite. ) Duration: Hour(s): Location: Reports: Head, Face, Generalized Associated Symptoms: Reports: Other (pt has a history of being forgetful. She had a recent MRI which was neg. ) Generalized Pain Score (Numeric/FACES): 5 - Related Data Allergies Allergy/AdvReac Type Severity Reaction Status Date / Time hydrocodone Allergy Other Verified 08/17/19 16:06 sucralfate [From Carafate] Allergy Other Verified 08/17/19 16:06 Home Meds: Home Meds Cholecalciferol (Vitamin D3) [Vitamin D3] 2,000 unit PO DAILY 10/28/15 [History] Cyanocobalamin (Vitamin B-12) [Vitamin B-12] 2,500 mcg SL DAILY 10/28/15 [ History] LORazepam [Ativan] 1 mg PO BID PRN 10/28/15 [History] Potassium Chloride [Klor-Con 10] 10 meq PO DAILY 10/28/15 [History] Calcium Carbonate/Vitamin D3 [Calcium Carbonate/Vitamin D 600 MG-200 Unit] 1, 000 - 1,200 mg PO BID 02/19/18 [History] Thyroid,Pork [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 chronic knee pain Neurological History: Reports: Vertigo, Other (See Below) Other Neuro History: memory problems Psychiatric History: Reports: Anxiety, Depression Endocrine/Metabolic History: Reports: Hypoparathyroidism, Obesity/BMI 30+ Hematologic History: Reports: B12 Deficiency - Infectious Disease History Infectious Disease History: Reports: C-Difficile, Influenza, Measles, Mumps - Past Surgical History HEENT Surgical History: Reports: Tonsillectomy Cardiovascular Surgical History: Reports: None GI Surgical History: Reports: Bariatric Procedure, Colonoscopy, EGD Female Surgical History: Reports: Hysterectomy Endocrine Surgical History: Reports: None Neurological Surgical History: Reports: Other (See Below) Other Neurological Surgeries/Procedures: hydroplasty Musculoskeletal Surgical History: Reports: Other (See Below) Other Musculoskeletal Surgeries/Procedures:: thumb surgery Dermatological Surgical History: Reports: None Social & Family History - Family History Family Medical History: Noncontributory - Tobacco Use Smoking Status *Q: Former Smoker Used Tobacco, but Quit: Yes Month/Year Tobacco Last Used: 20 years - Caffeine Use Caffeine Use: Reports: Coffee Other Caffeine Use: 1-2 cups a day - Recreational Drug Use Recreational Drug Use: No - Living Situation & Occupation Living situation: Reports: Alone Occupation: Retired (lives [facility] [place]. Has 2 living Children, 1 Son Marc in 1995 of cancer.) ED ROS GENERAL - Review of Systems Review Of Systems: See Below Constitutional: Reports: Weakness, Decreased Appetite, Other (pt has had a previous gastric by pass. ) Respiratory: Reports: No Symptoms Cardiovascular: Reports: No Symptoms Endocrine: Reports: No Symptoms GI/Abdominal: Reports: No Symptoms : Reports: No Symptoms Musculoskeletal: Reports: Other (pt has multiple bruises and she hurts all over. ) Skin: Reports: No Symptoms ED EXAM, GENERAL - Physical Exam Exam: See Below Free Text/Narrative:: pt arrived with ahistory of falling last nite and laying on the floor all nite because she was not able to get up. Exam Limited By: No Limitations General Appearance: Alert, Anxious, Mild Distress, Other (pupils are equal and reactive. ) Ears: Normal TMs Nose: Normal Inspection Throat/Mouth: Normal Inspection Head: Atraumatic Neck: Normal Inspection Respiratory/Chest: No Respiratory Distress Cardiovascular: Regular Rate, Rhythm GI/Abdominal: Soft, Non-Tender (Female) Exam: Deferred Rectal (Female) Exam: Deferred Back Exam: Normal Inspection Extremities: Normal Inspection Course - Vital Signs Last Recorded V/S: Last Vital Signs Temp 35.5 C 11/09/19 08:17 Pulse 78 11/09/19 08:17 Resp 12 11/09/19 08:17 BP 119/80 11/09/19 08:17 Pulse Ox 95 11/09/19 08:17 - Orders/Labs/Meds Orders: Medication Orders Acetaminophen (Tylenol) 650 mg PO Q4H PRN PRN Reason: Pain (Mild 1-3)/fever Last Admin: 11/09/19 09:01 Dose: 650 mg Admin: 11/08/19 21:34 Dose: 650 mg Admin: 11/08/19 14:58 Dose: 650 mg Admin: 11/08/19 05:45 Dose: 650 mg Admin: 11/08/19 01:47 Dose: 650 mg Admin: 11/07/19 19:48 Dose: 650 mg Admin: 11/07/19 15:10 Dose: 650 mg Admin: 11/06/19 17:15 Dose: 650 mg Albuterol (Proventil Neb Soln) 2.5 mg NEB Q4H PRN PRN Reason: Shortness Of Breath/wheezing Bacitracin (Bacitracin Oint 1 Gm) 1 dose TOP DAILY [facility] Last Admin: 11/08/19 10:32 Dose: 1 dose Admin: 11/07/19 10:48 Dose: 1 dose Admin: 11/06/19 21:09 Dose: Cyanocobalamin (Vitamin B12) 2,500 mcg SL DAILY [facility] Last Admin: 11/09/19 08:56 Dose: 2,500 mcg Admin: 11/08/19 10:29 Dose: 2,500 mcg Admin: 11/07/19 10:43 Dose: 2,500 mcg Lorazepam (Ativan) 0.5 mg PO BID PRN PRN Reason: Anxiety Lorazepam (Ativan) 0.5 mg IVPUSH Q4H PRN PRN Reason: Nausea/Vomiting Magnesium Hydroxide (Milk Of Magnesia) 30 ml PO Q12H PRN PRN Reason: Constipation Melatonin (Melatonin) 9 mg PO BEDTIME [facility] Last Admin: 11/08/19 20:30 Dose: Not Given Admin: 11/08/19 19:13 Dose: 9 mg Admin: 11/07/19 20:11 Dose: Admin: 11/07/19 19:47 Dose: 9 mg Admin: 11/06/19 21:03 Dose: 9 mg Ondansetron HCl (Zofran Odt) 4 mg PO Q6H PRN PRN Reason: Nausea able to take PO Last Admin: 11/08/19 13:50 Dose: 4 mg Ondansetron HCl (Zofran) 4 mg IV Q6H PRN PRN Reason: Nausea/Vomiting Pantoprazole Sodium (Protonix) 40 mg PO DAILY [facility] Last Admin: 11/09/19 08:57 Dose: 40 mg Admin: 11/08/19 10:30 Dose: 40 mg Admin: 11/07/19 10:43 Dose: 40 mg Polyethylene Glycol (Miralax) 17 gm PO DAILY [facility] Last Admin: 11/09/19 09:02 Dose: Not Given Admin: 11/08/19 10:30 Dose: 17 gm Admin: 11/07/19 10:44 Dose: 17 gm Senna/Docusate Sodium (Senna Plus) 1 tab PO BID PRN PRN Reason: Constipation Last Admin: 11/09/19 09:00 Dose: 1 tab Thyroid ([place] Thyroid) 90 mg PO ACBREAKFAST [facility] Last Admin: 11/09/19 08:57 Dose: 90 mg Admin: 11/08/19 08:39 Dose: 90 mg Admin: 11/07/19 08:42 Dose: 90 mg Tramadol HCl (Ultram) 50 mg PO Q6H PRN PRN Reason: Pain (moderate 4-6) Last Admin: 11/08/19 22:27 Dose: 50 mg Admin: 11/08/19 17:10 Dose: 50 mg Labs: Laboratory Tests 11/06/19 11/06/19 11/06/19 Range/Units 10:58 10:58 10:58 WBC 17.5 H (4.5-11.0) K/uL RBC 4.44 (3.30-5.50) M/uL Hgb 14.4 D (12.0-15.0) g/dL Hct 44.7 (36.0-48.0) % MCV 101 H (80-98) fL MCH 32 H (27-31) pg MCHC 32 (32-36) % Plt Count 379 (150-400) K/uL Neut % (Auto) 83 H (36-66) % Lymph % (Auto) 10 L (24-44) % [place] % (Auto) 7 H (2-6) % Eos % (Auto) 0 L (2-4) % Baso % (Auto) 0 (0-1) % PT 11.6 (9.5-12.0) sec INR 1.08 (0.80-1.20) APTT 25.9 L (27.0-36.0) sec Sodium 145 (140-148) mmol/L Potassium 3.7 (3.6-5.2) mmol/L Chloride 106 (100-108) mmol/L Carbon Dioxide 19 L (21-32) mmol/L Anion Gap 23.7 H (5.0-14.0) mmol/L BUN 40 H D (7-18) mg/dL Creatinine 1.5 H D (0.6-1.0) mg/dL Est Cr Clr Drug Dosing 22.95 mL/min Estimated GFR (MDRD) 33 L (>60) Glucose 115 H (74-106) mg/dL Calcium 9.0 (8.5-10.1) mg/dL Magnesium (1.8-2.4) mg/dL Total Bilirubin 0.8 (0.2-1.0) mg/dL AST 280 H D (15-37) U/L ALT 97 H (12-78) U/L Alkaline Phosphatase 139 H (46-116) U/L Creatine Kinase 6271 H (26-192) U/L Total Protein 6.9 (6.4-8.2) g/dL Albumin 3.5 (3.4-5.0) g/dL Globulin 3.4 (2.3-3.5) g/dL Albumin/Globulin Ratio 1.0 L (1.2-2.2) Free T4 (0.76-1.46) ng/dL TSH, Ultra Sensitive (0.358-3.740) uIU/mL 11/06/19 11/06/19 11/06/19 Range/Units 12:02 13:58 14:30 WBC (4.5-11.0) K/uL RBC (3.30-5.50) M/uL Hgb (12.0-15.0) g/dL Hct (36.0-48.0) % MCV (80-98) fL MCH (27-31) pg MCHC (32-36) % Plt Count (150-400) K/uL Neut % (Auto) (36-66) % Lymph % (Auto) (24-44) % [place] % (Auto) (2-6) % Eos % (Auto) (2-4) % Baso % (Auto) (0-1) % PT (9.5-12.0) sec INR (0.80-1.20) APTT (27.0-36.0) sec Sodium (140-148) mmol/L Potassium (3.6-5.2) mmol/L Chloride (100-108) mmol/L Carbon Dioxide (21-32) mmol/L Anion Gap (5.0-14.0) mmol/L BUN (7-18) mg/dL Creatinine (0.6-1.0) mg/dL Est Cr Clr Drug Dosing mL/min Estimated GFR (MDRD) (>60) Glucose (74-106) mg/dL Calcium (8.5-10.1) mg/dL Magnesium 2.4 (1.8-2.4) mg/dL Total Bilirubin (0.2-1.0) mg/dL AST (15-37) U/L ALT (12-78) U/L Alkaline Phosphatase (46-116) U/L Creatine Kinase (26-192) U/L Total Protein (6.4-8.2) g/dL Albumin (3.4-5.0) g/dL Globulin (2.3-3.5) g/dL Albumin/Globulin Ratio (1.2-2.2) Free T4 0.88 (0.76-1.46) ng/dL TSH, Ultra Sensitive 9.517 H (0.358-3.740) uIU/mL Meds: Medications Generic Name Dose Route Start Last Admin Trade Name Freq PRN Reason Stop Dose Admin Acetaminophen 650 mg 11/06/19 15:23 20 09:01 Tylenol PO 650 mg Q4H PRN Administration Pain (Mild 1-3)/fever Albuterol 2.5 mg 11/06/19 15:23 Proventil Neb Soln NEB Q4H PRN Shortness Of Breath/wheezing Bacitracin 1 dose 11/06/19 15:23 11/08/19 10:32 Bacitracin Oint 1 Gm TOP 1 dose DAILY RADHA Administration Cyanocobalamin 2,500 mcg 11/07/19 09:00 11/09/19 08:56 Vitamin B12 SL 2,500 mcg DAILY RADHA Administration Lorazepam 0.5 mg 11/06/19 15:23 Ativan PO BID PRN Anxiety Lorazepam 0.5 mg 11/06/19 15:23 Ativan IVPUSH Q4H PRN Nausea/Vomiting Magnesium Hydroxide 30 ml 11/06/19 15:23 Milk Of Magnesia PO Q12H PRN Constipation Melatonin 9 mg 11/06/19 21:00 11/08/19 20:30 Melatonin PO Not Given BEDTIME RADHA Ondansetron HCl 4 mg 11/06/19 15:23 11/08/19 13:50 Zofran Odt PO 4 mg Q6H PRN Administration Nausea able to take PO Ondansetron HCl 4 mg 11/06/19 15:23 Zofran IV Q6H PRN Nausea/Vomiting Pantoprazole Sodium 40 mg 11/07/19 09:00 11/09/19 08:57 Protonix PO 40 mg DAILY RADHA Administration Polyethylene Glycol 17 gm 11/07/19 09:00 11/09/19 09:02 Miralax PO Not Given DAILY RADHA Senna/Docusate Sodium 1 tab 11/06/19 15:23 11/09/19 09:00 Senna Plus PO 1 tab BID PRN Administration Constipation Thyroid 90 mg 11/07/19 07:30 11/09/19 08:57 Mammoth Thyroid PO 90 mg ACBREAKFAST RADHA Administration Tramadol HCl 50 mg 11/08/19 16:50 11/08/19 22:27 Ultram PO 50 mg Q6H PRN Administration Pain (moderate 4-6) Discontinued Medications Generic Name Dose Route Start Last Admin Trade Name Freq PRN Reason Stop Dose Admin Sodium Chloride 1,000 mls @ 999 mls/hr 11/06/19 12:00 11/06/19 13:27 Normal Saline IV 999 mls/hr ASDIRECTED RADHA Administration Sodium Chloride 1,000 mls @ 500 mls/hr 11/06/19 15:00 11/06/19 15:38 Normal Saline IV 11/06/19 17:01 500 mls/hr ASDIRECTED RADHA Administration Sodium Chloride 1,000 mls @ 125 mls/hr 11/06/19 15:23 11/08/19 02:43 Normal Saline IV 125 mls/hr ASDIRECTED RADHA Administration Ceftriaxone Sodium 1 gm/ 50 mls @ 100 mls/hr 11/06/19 18:30 11/07/19 17:53 Sodium Chloride IV 100 mls/hr Q24H RADHA Administration Sodium Chloride 1,000 mls @ 50 mls/hr 11/08/19 09:00 11/09/19 06:27 Normal Saline IV 50 mls/hr ASDIRECTED RADHA Administration Potassium Chloride 40 meq 11/07/19 09:00 11/08/19 17:11 Klor-Con M20 PO 40 meq BIDAC RADHA Administration - Re-Assessments/Exams Free Text/Narrative Re-Assessment/Exam: 11/06/19 14:04 pt is dry and she does have a elevated creatnine. She has not been eating and drinking for several days at home. She fell last nite and was on the floor all nite. She has a ck of greater than 6000. She will be hydrated. Departure - Departure Time of Disposition: 14:05 Disposition: Admitted As Inpatient 66 Condition: Fair Clinical Impression: Elevated CK, Dehydration, Renal insufficiency, Multiple bruises - Discharge Information Sepsis Event Note - Evaluation Sepsis Screening Result: No Definite Risk - Focused Exam Date Exam was Performed: 11/09/19 Time Exam was Performed: 10:10
--- NOTE | 2019-11-06 14:07 | CRLCR ---
INDICATION: Dyspnea COMPARISON: April 13, 2018 TECHNIQUE: A single view chest radiograph was acquired as a portable AP upright study FINDINGS: TUBES AND LINES: None. HEART AND MEDIASTINUM: Heart size normal. Tortuous thoracic aorta. LUNGS AND PLEURAL SPACES: The lungs appear normal.There pleural spaces are unremarkable. OSSEOUS STRUCTURES: Bilateral rib fractures of various ages. IMPRESSION: No evidence of active pulmonary disease. Dictated by Devyn Kebede MD @ Nov 06 2019 2:02PM Signed by Dr. Devyn Kebede @ Nov 06 2019 2:05PM
--- NOTE | 2019-11-06 14:17 | CRLCT ---
INDICATION: Head injury TECHNIQUE: Head CT without contrast. COMPARISON: None FINDINGS: CSF spaces: Within normal limits for age. Brain parenchyma and extra-axial spaces: There are nonspecific low attenuation white matter changes consistent with chronic microvascular disease. No sign of mass, hemorrhage, or midline shift. Skull base and calvarium: Minimal fluid and debris present in the right maxillary sinus. The visualized orbits are grossly unremarkable. No skull fractures. IMPRESSION: No sign of acute injury.Right maxillary sinusitis. Please note that all CT scans at this facility use dose modulation, iterative reconstruction, and/or weight-based dosing when appropriate to reduce radiation dose to as low as reasonably achievable. Dictated by Nilesh Fontanez MD @ Nov 06 2019 2:11PM Signed by Dr. Nilesh Fontanez @ Nov 06 2019 2:16PM
--- NOTE | 2019-11-06 15:17 | PCM.HP.2 ---
H&P History of Present Illness - General Date of Service: 11/06/19 Admit Problem/Dx: Admission Diagnosis/Problem Admission Diagnosis/Problem Rhabdomyolysis Source of Information: Patient, Provider, RN Notes Reviewed History Limitations: Reports: No Limitations - History of Present Illness Initial Comments - Free Text/Narative: CC: I was so weak HPI: Cielo presents to the emergency room today with weakness and recurrent falls. She reports that she has had multiple falls due to losing her balance over the past several weeks and they have been more frequent the past few days. Last night she fell down and was so weak that she could not get up off the floor. She laid on the floor overnight before she was able to summon help this morning. She has multiple bruises including bruises on her forehead, face, both arms and both knees. She does not currently report pain in any of her muscles or joints. She has not had any fevers, shortness of breath or abdominal pain. No change in bowel or bladder habits. She reports that she simply has slowly been going downhill and falling more frequently and becoming more weak. She does have a cane that she uses most of the time but admits that most of her falls happen when she is not using her. She does report a history of alcohol use but has not had any in the past 3 weeks or more. She and her son have been discussing the transition to assisted living but no plans have been started as of yet. Work-up in the emergency room was suggestive of acute kidney injury as well as acute traumatic rhabdomyolysis. There is no evidence for infection yet but urine sample has not been obtained. She has received 1 L of IV fluids. She will be admitted for management of rhabdomyolysis and acute kidney injury. She will likely need placement in a [facility] facility for rehabilitation. Generalized Pain Score (Numeric/FACES): 5 - Related Data Allergies/Adverse Reactions: Allergies Allergy/AdvReac Type Severity Reaction Status Date / Time hydrocodone Allergy Other Verified 08/17/19 16:06 sucralfate [From Carafate] Allergy Other Verified 08/17/19 16:06 Home Medications: Home Meds B-Complex with Vitamin C [Super B Complex-Vitamin C] 1 tab PO DAILY 10/28/15 [ History] Biotin 5,000 mcg PO DAILY 10/28/15 [History] Cholecalciferol (Vitamin D3) [Vitamin D3] 2,000 unit PO DAILY 10/28/15 [History] Cyanocobalamin (Vitamin B-12) [Vitamin B-12] 2,500 mcg SL DAILY 10/28/15 [ History] LORazepam [Ativan] 1 mg PO BID PRN 10/28/15 [History] Potassium Chloride [Klor-Con 10] 10 meq PO DAILY 10/28/15 [History] Vitamin E 400 unit PO DAILY 10/28/15 [History] Calcitonin ([place]) [Miacalcin Nasal [place]] 1 spray TWIN DAILY 02/19/18 [History] Calcium Carbonate/Vitamin D3 [Calcium Carbonate/Vitamin D 600 MG-200 Unit] 1, 000 - 1,200 mg PO BID 02/19/18 [History] Fluticasone Propionate [Flonase] 2 spray TWIN DAILY 02/19/18 [History] rOPINIRole HCl [Requip] 0.5 mg PO DAILY 02/19/18 [History] Furosemide 20 mg PO DAILY PRN 08/17/19 [History] Pantoprazole Sodium [Protonix] 40 mg PO DAILY 08/17/19 [History] traMADol HCl [Tramadol HCl] 50 mg PO BID 08/17/19 [History] Polyethylene Glycol 3350 [MiraLAX] 17 gm PO DAILY 11/06/19 [History] Thyroid,Pork [Marine Cargo Inspector Thyroid] 90 mg PO ACBREAKFAST 11/06/19 [History] Past Medical History HEENT History: Reports: Allergic Rhinitis, Impaired Vision Other HEENT History: wears glasses Cardiovascular History: Reports: Syncope Gastrointestinal History: Reports: None, Other (See Below) Other Gastrointestinal History: history of Ulcer Genitourinary History: Reports: None DIRECTOR OF SOFTWARE DEVELOPMENT History: Reports: , Spontaneous Musculoskeletal History: Reports: Fracture, Osteoarthritis, Osteoporosis, Other (See Below) Other Musculoskeletal History: right thumb infection. chronic knee pain Neurological History: Reports: Vertigo, Other (See Below) Other Neuro History: memory problems Psychiatric History: Reports: Anxiety, Depression Endocrine/Metabolic History: Reports: Hypoparathyroidism, Obesity/BMI 30+ Hematologic History: Reports: B12 Deficiency - Infectious Disease History Infectious Disease History: Reports: C-Difficile, Influenza, Measles, Mumps - Past Surgical History HEENT Surgical History: Reports: Tonsillectomy Cardiovascular Surgical History: Reports: None GI Surgical History: Reports: Bariatric Procedure, Colonoscopy, EGD Female Surgical History: Reports: Hysterectomy Endocrine Surgical History: Reports: None Neurological Surgical History: Reports: Other (See Below) Other Neurological Surgeries/Procedures: hydroplasty Musculoskeletal Surgical History: Reports: Other (See Below) Other Musculoskeletal Surgeries/Procedures:: thumb surgery Dermatological Surgical History: Reports: None Social & Family History - Family History Family Medical History: Noncontributory - Tobacco Use Smoking Status *Q: Former Smoker Used Tobacco, but Quit: Yes Month/Year Tobacco Last Used: 20 years - Caffeine Use Caffeine Use: Reports: Coffee Other Caffeine Use: 1-2 cups a day - Alcohol Use Alcohol Use History: Yes Alcohol Use in Last Twelve Months: Yes Alcohol Use Comment: no alcohol in past 3 weeks - Recreational Drug Use Recreational Drug Use: No - Living Situation & Occupation Living situation: Reports: Alone Occupation: Retired (lives alone in [facility] [address] next to Retirement. Has 2 living Children, 1 Son Marc in 1995 of cancer.) H&P Review of Systems - Review of Systems: Review Of Systems: See Below Free Text/Narrative: A complete 12 point review of systems was obtained. Pertinent positives and negatives are noted in the history of present illness. All other systems were reviewed and were negative except as noted. Exam - Exam Exam: See Below - Vital Signs Vital Signs: Last Vital Signs Temp 36.7 C 11/06/19 10:44 Pulse 75 11/06/19 14:52 Resp 17 11/06/19 14:52 BP 132/84 11/06/19 14:52 Pulse Ox 96 11/06/19 14:52 Weight: 65.317 kg - Exam Quality Assessment: No: Supplemental Oxygen General: Alert, Oriented, Cooperative. No: Mild Distress HEENT: Conjunctiva Clear. No: Mucosa Moist & [place] (dry), Scleral Icterus Neck: Supple, Trachea Midline. No: Lymphadenopathy Lungs: Clear to Auscultation, Normal Respiratory Effort Cardiovascular: Regular Rate, Regular Rhythm. No: Systolic Murmur GI/Abdominal Exam: Normal Bowel Sounds, Soft, Non-Tender, No Distention Extremities: No Pedal Edema. No: Joint Swelling, Increased Warmth Peripheral Pulses: 2+: Dorsalis Pedis (L), Dorsalis Pedis (R) Skin: Warm, Dry, Ecchymosis (left forehead and cheek, right eye, both forerarms , both knees, both feet near the toes), Wound (abrasions on both knees, 2 cm skin tear right lateral forearm ) Neuro Extensive - Mental Status: Alert, Oriented x3, Nl Response to Commands Neuro Extensive - Motor, Sensory, Reflexes: No: Dysarthria, Abnormal Motor, Tremor Psychiatric: Alert, Normal Affect - Patient Data Lab Results Last 24 hrs: Laboratory Results - last 24 hr 11/06/19 11/06/19 11/06/19 Range/Units 10:58 10:58 10:58 WBC 17.5 H (4.5-11.0) K/uL RBC 4.44 (3.30-5.50) M/uL Hgb 14.4 D (12.0-15.0) g/dL Hct 44.7 (36.0-48.0) % MCV 101 H (80-98) fL MCH 32 H (27-31) pg MCHC 32 (32-36) % Plt Count 379 (150-400) K/uL Neut % (Auto) 83 H (36-66) % Lymph % (Auto) 10 L (24-44) % [place] % (Auto) 7 H (2-6) % Eos % (Auto) 0 L (2-4) % Baso % (Auto) 0 (0-1) % PT 11.6 (9.5-12.0) sec INR 1.08 (0.80-1.20) APTT 25.9 L (27.0-36.0) sec Sodium 145 (140-148) mmol/L Potassium 3.7 (3.6-5.2) mmol/L Chloride 106 (100-108) mmol/L Carbon Dioxide 19 L (21-32) mmol/L Anion Gap 23.7 H (5.0-14.0) mmol/L BUN 40 H D (7-18) mg/dL Creatinine 1.5 H D (0.6-1.0) mg/dL Est Cr Clr Drug Dosing 22.95 mL/min Estimated GFR (MDRD) 33 L (>60) Glucose 115 H (74-106) mg/dL Calcium 9.0 (8.5-10.1) mg/dL Magnesium (1.8-2.4) mg/dL Total Bilirubin 0.8 (0.2-1.0) mg/dL AST 280 H D (15-37) U/L ALT 97 H (12-78) U/L Alkaline Phosphatase 139 H (46-116) U/L Creatine Kinase 6271 H (26-192) U/L Total Protein 6.9 (6.4-8.2) g/dL Albumin 3.5 (3.4-5.0) g/dL Globulin 3.4 (2.3-3.5) g/dL Albumin/Globulin Ratio 1.0 L (1.2-2.2) Free T4 (0.76-1.46) ng/dL TSH, Ultra Sensitive (0.358-3.740) uIU/mL 11/06/19 11/06/19 11/06/19 Range/Units 12:02 13:58 14:30 WBC (4.5-11.0) K/uL RBC (3.30-5.50) M/uL Hgb (12.0-15.0) g/dL Hct (36.0-48.0) % MCV (80-98) fL MCH (27-31) pg MCHC (32-36) % Plt Count (150-400) K/uL Neut % (Auto) (36-66) % Lymph % (Auto) (24-44) % [place] % (Auto) (2-6) % Eos % (Auto) (2-4) % Baso % (Auto) (0-1) % PT (9.5-12.0) sec INR (0.80-1.20) APTT (27.0-36.0) sec Sodium (140-148) mmol/L Potassium (3.6-5.2) mmol/L Chloride (100-108) mmol/L Carbon Dioxide (21-32) mmol/L Anion Gap (5.0-14.0) mmol/L BUN (7-18) mg/dL Creatinine (0.6-1.0) mg/dL Est Cr Clr Drug Dosing mL/min Estimated GFR (MDRD) (>60) Glucose (74-106) mg/dL Calcium (8.5-10.1) mg/dL Magnesium 2.4 (1.8-2.4) mg/dL Total Bilirubin (0.2-1.0) mg/dL AST (15-37) U/L ALT (12-78) U/L Alkaline Phosphatase (46-116) U/L Creatine Kinase (26-192) U/L Total Protein (6.4-8.2) g/dL Albumin (3.4-5.0) g/dL Globulin (2.3-3.5) g/dL Albumin/Globulin Ratio (1.2-2.2) Free T4 0.88 (0.76-1.46) ng/dL TSH, Ultra Sensitive 9.517 H (0.358-3.740) uIU/mL Result Diagrams: 11/06/19 10:58 11/06/19 10:58 Edgar Results Last 24 hrs: Microbiology 11/06/19 12:02 Group A Streptococcus Rapid Screen - Final Throat NEGATIVE STREP A SCREEN REFERENCE RANGE: NEGATIVE Imaging Impressions Last 24 hrs: CXR - images personally reviewed - lungs clear with no mass, infiltrate or effusion. Heart size is normal. Sepsis Event Note - Evaluation Sepsis Screening Result: No Definite Risk - Focused Exam Vital Signs: Vital Signs Temp Pulse Resp BP Pulse Ox 11/06/19 14:52 75 17 132/84 96 11/06/19 14:15 80 20 121/81 100 11/06/19 10:44 36.7 C 82 11 L 125/77 97 11/06/19 10:42 36.7 C 82 11 L 125/77 97 Date Exam was Performed: 11/06/19 Time Exam was Performed: 15:56 *Q Meaningful Use (ADM) - VTE *Q VTE Pharmacological Contraindications *Q: Risk of Bleeding (multiple falls with multiple areas of trauma and bruising) - VTE Risk Assess *Q Each Risk Factor Represents 1 Point: Obesity ( BMI > 25 kg/m2) Total Score 1 Point Risk Factors: 1 Each Risk Factor Represents 2 Points: None Total Score 2 Point Risk Factors: 0 Each Risk Factor Represents 3 Points: Age 75 Years or Greater Total Score 3 Point Risk Factors: 3 Each Risk Factor Represents 5 Points: None Total Score 5 Point Risk Factors: 0 Venous Thromboembolism Risk Factor Score *Q: 4 - Problem List (1) Traumatic rhabdomyolysis SNOMED Code(s): 074857458 ICD Code: T79.6XXA - TRAUMATIC ISCHEMIA OF MUSCLE, INITIAL ENCOUNTER Status : Acute Current Visit: Yes Qualifiers: Encounter type: initial encounter Qualified Code(s): T79.6XXA - Traumatic ischemia of muscle, initial encounter (2) Acute renal failure due to traumatic rhabdomyolysis SNOMED Code(s): 356567209 ICD Code: N17.9 - ACUTE KIDNEY FAILURE, UNSPECIFIED; T79.6XXA - TRAUMATIC ISCHEMIA OF MUSCLE, INITIAL ENCOUNTER Status: Acute Current Visit: Yes (3) Recurrent falls SNOMED Code(s): 221898100 ICD Code: R29.6 - REPEATED FALLS Status: Acute Current Visit: Yes (4) Hypothyroidism SNOMED Code(s): 65866882 ICD Code: E03.9 - HYPOTHYROIDISM, UNSPECIFIED Status: Acute Priority: Low Current Visit: No Qualifiers: Hypothyroidism type: acquired Qualified Code(s): E03.9 - Hypothyroidism, unspecified Problem List Initiated/Reviewed/Updated: Yes Orders Last 24hrs: Active Orders 24 hr Category Date Time Status Patient Status Manage Transfer [TRANSFER] Routine ADT 11/06/19 15:04 Active CULTURE STREP A CONFIRMATION [RM] Stat Lab 11/06/19 12:02 Results STREP SCRN A RAPID W CULT CONF [RM] Stat Lab 11/06/19 12:02 Results UA W/MICROSCOPIC [URIN] Urgent Lab 11/06/19 10:40 Ordered Sodium Chloride 0.9% [Normal Saline] 1,000 ml Med 11/06/19 12:00 Active IV ASDIRECTED Sodium Chloride 0.9% [Normal Saline] 1,000 ml Med 11/06/19 15:00 Active IV ASDIRECTED Resuscitation Status Routine Resus Stat 11/06/19 15:06 Ordered Medication Orders Sodium Chloride (Normal Saline) 1,000 mls @ 999 mls/hr IV ASDIRECTED [facility] Last Admin: 11/06/19 13:27 Dose: 999 mls/hr Sodium Chloride (Normal Saline) 1,000 mls @ 500 mls/hr IV ASDIRECTED [facility] Stop: 11/06/19 17:01 Assessment/Plan Comment:: ASSESSMENT AND PLAN - Acute traumatic rhabdomyolysis-secondary to fall and spending the night on the floor. CK level was more than 6000. She has associated acute kidney injury as discussed below. She remains extremely weak. No obvious injuries from the falls. Vital signs are stable at this point. -Aggressive IV fluids -Repeat CK level in the morning -Close monitoring of intake and output -Physical therapy in the morning Acute kidney injury-creatinine more than double her baseline level. Secondary to rhabdo and dehydration. I would anticipate this should improve with hydration. -Aggressive fluids as above -Repeat labs in the morning Recurrent falls-patient reports that the falls are secondary to losing her balance. She would benefit from physical therapy evaluation and likely subacute rehabilitation prior to transition to assisted living or potentially but much less likely home. -High fall risk -Physical therapy Acquired hypothyroidism-normal range. TSH is elevated but free T4 is in the normal range. For now we will continue her current supplement and re-check down the road. Maintenance issues - - DVT prophylaxis - mechanical with recent multiple trauma - GI prophylaxis -PPI - Nutrition -regular - [place] catheter -not indicated but could be considered if urine output is low CODE STATUS - DNR/DNI Admission justification -this patient will be admitted for inpatient services and is medically appropriate meeting medical necessity for inpatient admission as outlined in my documentation. I reasonably expect the patient will require inpatient services that span a period time over 2 midnights. I reasonably expect this patient to be discharged or transferred within 96 hours [facility]. Disposition -I would anticipate discharge to [facility] facility for subacute rehab Primary care physician - Dr. Raad Child M.D. - Mortality Measure Prognosis:: Good
[2019-11-06] MEDS ORDERED: Magnesium Hydroxide 400 MG/5 ML Susp 30 ML Cup PO PRN (15:23)
[2019-11-06] MEDS ORDERED: Albuterol 0.083% 2.5 MG/3 ML Neb Soln NEB PRN (15:23)
[2019-11-06] MEDS ORDERED: Ondansetron 4 MG Tab.DIS PO PRN (15:23)
[2019-11-06] MEDS ORDERED: LORazepam 2 MG/ML SDV IVPUSH PRN (15:23)
[2019-11-06] MEDS ORDERED: Ondansetron 4 MG/2 ML SDV IV PRN (15:23)
[2019-11-06] MEDS ORDERED: LORazepam 0.5 MG Tab PO PRN (15:23)
[2019-11-06] MEDS: Acetaminophen 325 MG Tab PO PRN (17:15)
[2019-11-06] MEDS: Sodium Chloride 0.9% 1,000 ML IV SCH (17:40)
--- NOTE | 2019-11-06 18:49 | PCM.SN ---
- Free Text/Narrative Note: [id number] call from [address] [place] [address] to review lab. O: vital sign 36.2-82-16 blood pressure 116/81 urine clean catch results: color orange, cloudy, trace occult blood, negative nitrates, leukocytes trace, bilirubin, rbc 10-20, wbc 5-10 a: urine with positive WBC p: urine culture ordered, Rocephin 1 gram IV., continue IV fluids.
[2019-11-06] MEDS: cefTRIAXone 1 GM in Sodium Chloride 0.9% 50 ML IV SCH (18:54)
[2019-11-06] MEDS: Melatonin 3 MG Tab PO SCH (21:03)
[2019-11-06] MEDS: Bacitracin Oint 1 GM U/D Packet TOP SCH (21:09)
[2019-11-07] MEDS: Sodium Chloride 0.9% 1,000 ML IV SCH ×3 (02:09→18:46)
[2019-11-07] MEDS: Potassium Chloride 20 MEQ Tab.ER PO SCH ×2 (10:43→16:32)
[2019-11-07] MEDS: Cyanocobalamin (Vitamin B12) 1,000 MCG Tab SL SCH (10:43)
[2019-11-07] MEDS: Pantoprazole 40 MG Tab.CR PO SCH (10:43)
[2019-11-07] MEDS: Polyethylene Glycol 3350 Powder 17 GM Packet PO SCH (10:44)
[2019-11-07] MEDS: Bacitracin Oint 1 GM U/D Packet TOP SCH (10:48)
--- NOTE | 2019-11-07 12:04 | CRLCR ---
Indication: Left hip pain. Technique: Pelvis and left hip 3 views. Comparison: None. Findings: No acute fracture or dislocation. Mild degenerative changes of the left hip with mild joint space narrowing and subchondral sclerosis. AP view of the right hip demonstrates a similar degree of mild degenerative change. Degenerative changes lower lumbar spine, sacroiliac joints, and pubic symphysis. Soft tissues are unremarkable. Impression: 1. No acute findings. 2. Mild degenerative changes of both hips. Dictated by Idalia Mcknight MD @ Nov 07 2019 12:01PM Signed by Dr. Idalia Mcknight @ Nov 07 2019 12:03PM
--- NOTE | 2019-11-07 14:43 | PCM.PN ---
- General Info Date of Service: 11/07/19 Subjective Update: No acute events overnight following admission. Patient does report some mild generalized abdominal tenderness but no nausea, vomiting or diarrhea. She is also complaining of some left hip and pelvis pain, especially when she tries to bear any weight. She has not had fevers. Urine sample possibly suggestive of infection so empiric antibiotics were started last night and culture was set up. Appetite remains very poor. CK level has improved significantly since admission and is now below 2000. Functional Status: Reports: Pain Controlled, Tolerating Diet - Review of Systems General: Reports: Weakness Gastrointestinal: Reports: Abdominal Pain Musculoskeletal: Reports: Leg Pain (Left hip) - Patient Data Vitals - Most Recent: Last Vital Signs Temp 36.1 C 11/07/19 11:00 Pulse 75 11/07/19 11:00 Resp 18 11/07/19 11:00 BP 121/79 11/07/19 11:00 Pulse Ox 93 L 11/07/19 11:00 Weight - Most Recent: 64.892 kg I&O - Last 24 Hours: Intake & Output 11/06/19 11/07/19 11/07/19 22:59 06:59 14:59 Intake Total 1000 1904 Output Total 200 200 100 Balance 800 1704 -100 Lab Results Last 24 Hours: Laboratory Results - last 24 hr 11/06/19 11/06/19 11/07/19 Range/Units 14:30 17:26 05:27 WBC 13.9 H (4.5-11.0) K/uL RBC 3.61 (3.30-5.50) M/uL Hgb 11.6 L D (12.0-15.0) g/dL Hct 37.0 (36.0-48.0) % MCV 103 H (80-98) fL MCH 32 H (27-31) pg MCHC 31 L (32-36) % Plt Count 264 (150-400) K/uL Sodium (140-148) mmol/L Potassium (3.6-5.2) mmol/L Chloride (100-108) mmol/L Carbon Dioxide (21-32) mmol/L Anion Gap (5.0-14.0) mmol/L BUN (7-18) mg/dL Creatinine (0.6-1.0) mg/dL Est Cr Clr Drug Dosing mL/min Estimated GFR (MDRD) (>60) Glucose (74-106) mg/dL Calcium (8.5-10.1) mg/dL Total Bilirubin (0.2-1.0) mg/dL AST (15-37) U/L ALT (12-78) U/L Alkaline Phosphatase (46-116) U/L Creatine Kinase (26-192) U/L Total Protein (6.4-8.2) g/dL Albumin (3.4-5.0) g/dL Globulin (2.3-3.5) g/dL Albumin/Globulin Ratio (1.2-2.2) Vitamin B12 (193-986) pg/ml Free T4 0.88 (0.76-1.46) ng/dL Urine Color [place] A (YELLOW) Urine Appearance Cloudy A (CLEAR) Urine pH 5.5 (5.0-8.0) Ur Specific Curtiss >= 1.030 (1.008-1.030) Urine Protein 30 H (NEGATIVE) mg/dL Urine Glucose (UA) Negative (NEGATIVE) mg/dL Urine Ketones 40 H (NEGATIVE) mg/dL Urine Occult Blood Trace-intact H (NEGATIVE) Urine Nitrite Negative (NEGATIVE) Urine Bilirubin Small H (NEGATIVE) Urine Urobilinogen 0.2 (0.2-1.0) EU/dL Ur Leukocyte Esterase Trace H (NEGATIVE) Urine RBC 10-20 H (0-5) Urine WBC 5-10 H (0-5) Ur Epithelial Cells Many Amorphous Sediment Many Urine Bacteria Few Urine Mucus Not seen 11/07/19 Range/Units 05:27 WBC (4.5-11.0) K/uL RBC (3.30-5.50) M/uL Hgb (12.0-15.0) g/dL Hct (36.0-48.0) % MCV (80-98) fL MCH (27-31) pg MCHC (32-36) % Plt Count (150-400) K/uL Sodium 141 (140-148) mmol/L Potassium 3.1 L (3.6-5.2) mmol/L Chloride 108 (100-108) mmol/L Carbon Dioxide 21 (21-32) mmol/L Anion Gap 15.1 H (5.0-14.0) mmol/L BUN 31 H (7-18) mg/dL Creatinine 0.9 (0.6-1.0) mg/dL Est Cr Clr Drug Dosing 38.25 mL/min Estimated GFR (MDRD) > 60 (>60) Glucose 123 H (74-106) mg/dL Calcium 7.8 L (8.5-10.1) mg/dL Total Bilirubin 0.4 (0.2-1.0) mg/dL AST 141 H (15-37) U/L ALT 71 (12-78) U/L Alkaline Phosphatase 103 (46-116) U/L Creatine Kinase 1795 H (26-192) U/L Total Protein 5.4 L (6.4-8.2) g/dL Albumin 2.5 L (3.4-5.0) g/dL Globulin 2.9 (2.3-3.5) g/dL Albumin/Globulin Ratio 0.9 L (1.2-2.2) Vitamin B12 1866 H (193-986) pg/ml Free T4 (0.76-1.46) ng/dL Urine Color (YELLOW) Urine Appearance (CLEAR) Urine pH (5.0-8.0) Ur Specific [place] (1.008-1.030) Urine Protein (NEGATIVE) mg/dL Urine Glucose (UA) (NEGATIVE) mg/dL Urine Ketones (NEGATIVE) mg/dL Urine Occult Blood (NEGATIVE) Urine Nitrite (NEGATIVE) Urine Bilirubin (NEGATIVE) Urine Urobilinogen (0.2-1.0) EU/dL Ur Leukocyte Esterase (NEGATIVE) Urine RBC (0-5) Urine WBC (0-5) Ur Epithelial Cells Amorphous Sediment Urine Bacteria Urine Mucus Edgar Results Last 24 Hours: Microbiology 11/06/19 12:02 Quick Strep Confirmation Culture - Preliminary Throat NO GROUP A STREP ISOLATED REFERENCE RANGE: NEGATIVE Group A Streptococcus Rapid Screen - Final NEGATIVE STREP A SCREEN REFERENCE RANGE: NEGATIVE Med Orders - Current: Current Medications Acetaminophen (Tylenol) 650 mg PO Q4H PRN PRN Reason: Pain (Mild 1-3)/fever Last Admin: 11/06/19 17:15 Dose: 650 mg Albuterol (Proventil Neb Soln) 2.5 mg NEB Q4H PRN PRN Reason: Shortness Of Breath/wheezing Bacitracin (Bacitracin Oint 1 Gm) 1 dose TOP DAILY [facility] Last Admin: 01/16/20 10:48 Dose: 1 dose Cyanocobalamin (Vitamin B12) 2,500 mcg SL DAILY [facility] Last Admin: 11/07/19 10:43 Dose: 2,500 mcg Sodium Chloride (Normal Saline) 1,000 mls @ 125 mls/hr IV ASDIRECTED [facility] Last Admin: 11/07/19 10:18 Dose: 125 mls/hr Ceftriaxone Sodium 1 gm/ (Sodium Chloride) 50 mls @ 100 mls/hr IV Q24H [facility] Last Admin: 11/06/19 18:54 Dose: 100 mls/hr Lorazepam (Ativan) 0.5 mg PO BID PRN PRN Reason: Anxiety Lorazepam (Ativan) 0.5 mg IVPUSH Q4H PRN PRN Reason: Nausea/Vomiting Magnesium Hydroxide (Milk Of Magnesia) 30 ml PO Q12H PRN PRN Reason: Constipation Melatonin (Melatonin) 9 mg PO BEDTIME [facility] Last Admin: 11/06/19 21:03 Dose: 9 mg Ondansetron HCl (Zofran Odt) 4 mg PO Q6H PRN PRN Reason: Nausea able to take PO Ondansetron HCl (Zofran) 4 mg IV Q6H PRN PRN Reason: Nausea/Vomiting Pantoprazole Sodium (Protonix) 40 mg PO DAILY [facility] Last Admin: 11/07/19 10:43 Dose: 40 mg Polyethylene Glycol (Miralax) 17 gm PO DAILY [facility] Last Admin: 11/07/19 10:44 Dose: 17 gm Potassium Chloride (Klor-Con M20) 40 meq PO BIDAC [facility] Last Admin: 11/07/19 10:43 Dose: 40 meq Senna/Docusate Sodium (Senna Plus) 1 tab PO BID PRN PRN Reason: Constipation Thyroid ([place] Thyroid) 90 mg PO ACBREAKFAST [facility] Last Admin: 11/07/19 08:42 Dose: 90 mg Discontinued Medications Sodium Chloride (Normal Saline) 1,000 mls @ 999 mls/hr IV ASDIRECTED [facility] Last Admin: 11/06/19 13:27 Dose: 999 mls/hr Sodium Chloride (Normal Saline) 1,000 mls @ 500 mls/hr IV ASDIRECTED [facility] Stop: 11/06/19 17:01 Last Admin: 11/06/19 15:38 Dose: 500 mls/hr - Exam Quality Assessment: No: Supplemental Oxygen General: Alert, Oriented, Cooperative, No Acute Distress Lungs: Clear to Auscultation, Normal Respiratory Effort Cardiovascular: Regular Rate, Regular Rhythm GI/Abdominal Exam: Soft, No Distention, Tender (Very mild generalized). No: Guarding Extremities: Pedal Edema (Trace ankle edema), Other (No swelling, warmth or tenderness over the left hip or pelvis area laterally). No: Increased Warmth Skin: Warm, Dry, Ecchymosis (Bruising on left forehead and left cheek as well as both arms and both knees. No bruising over the left hip) Psy/Mental Status: Alert, Normal Affect Sepsis Event Note - Evaluation Sepsis Screening Result: No Definite Risk - Focused Exam Vital Signs: Vital Signs Temp Pulse Resp BP Pulse Ox 11/07/19 11:00 36.1 C 75 18 121/79 93 L 11/07/19 06:53 35.7 C 77 18 121/74 97 11/07/19 04:00 36.2 C 77 16 133/76 94 L Date Exam was Performed: 11/07/19 Time Exam was Performed: 14:39 - Problem List & Annotations (1) Traumatic rhabdomyolysis SNOMED Code(s): 538817353 Code(s): T79.6XXA - TRAUMATIC ISCHEMIA OF MUSCLE, INITIAL ENCOUNTER Status : Acute Current Visit: Yes Qualifiers: Encounter type: initial encounter Qualified Code(s): T79.6XXA - Traumatic ischemia of muscle, initial encounter (2) Acute renal failure due to traumatic rhabdomyolysis SNOMED Code(s): 504988126 Code(s): N17.9 - ACUTE KIDNEY FAILURE, UNSPECIFIED; T79.6XXA - TRAUMATIC ISCHEMIA OF MUSCLE, INITIAL ENCOUNTER Status: Acute Current Visit: Yes (3) Recurrent falls SNOMED Code(s): 125884528 Code(s): R29.6 - REPEATED FALLS Status: Chronic Current Visit: Yes (4) Hypothyroidism SNOMED Code(s): 66228986 Code(s): E03.9 - HYPOTHYROIDISM, UNSPECIFIED Status: Resolved Priority: Low Current Visit: No Qualifiers: Hypothyroidism type: acquired Qualified Code(s): E03.9 - Hypothyroidism, unspecified - Problem List Review Problem List Initiated/Reviewed/Updated: Yes - My Orders Last 24 Hours: My Active Orders 11/06/19 15:06 Resuscitation Status Routine 11/06/19 15:23 Patient Status [ADT] Routine Antiembolic Devices [RC] .Routine Dietary Supplements [RC] TIDMEALS Dressing Change [Wound Care] [RC] Q12H Intake and Output [RC] Q12H Notify Provider Vital Signs [RC] ASDIRECTED Oxygen Therapy [RC] PRN RT Aerosol Therapy [RC] ASDIRECTED Up With Assistance [RC] ASDIRECTED VTE/DVT Education [RC] Per Unit Routine Vital Signs [RC] Q4H Acetaminophen [Tylenol] 650 mg PO Q4H PRN Albuterol [Proventil Neb Soln] 2.5 mg NEB Q4H PRN Bacitracin [Bacitracin Oint 1 GM] 1 dose TOP DAILY Docusate Sodium/Sennosides [Senna Plus] 1 tab PO BID PRN LORazepam [Ativan] 0.5 mg IVPUSH Q4H PRN LORazepam [Ativan] 0.5 mg PO BID PRN Magnesium Hydroxide [Milk of Magnesia] 30 ml PO Q12H PRN Ondansetron [Zofran ODT] 4 mg PO Q6H PRN Ondansetron [Zofran] 4 mg IV Q6H PRN Sodium Chloride 0.9% [Normal Saline] 1,000 ml IV ASDIRECTED Antiembolic Hose [OM.PC] Routine Pressure Reduction Mattress [OM.PC] Routine 11/06/19 21:00 Melatonin 9 mg PO BEDTIME 11/06/19 Dinner Regular Diet [DIET] 11/07/19 07:00 PT Evaluation and Treatment [CONS] Routine 11/07/19 07:30 Thyroid [[place] Thyroid] 90 mg PO ACBREAKFAST 11/07/19 09:00 Cyanocobalamin (Vitamin B12) [Vitamin B12] 2,500 mcg SL DAILY Pantoprazole [ProTONIX] 40 mg PO DAILY Polyethylene Glycol 3350 [MiraLAX] 17 gm PO DAILY Potassium Chloride [Klor-Con M20] 40 meq PO BIDAC 11/07/19 13:11 Consult to Call Or Contact Centre Coach [CONS] Routine 11/08/19 05:00 BASIC METABOLIC PANEL,BMP [CHEM] Timed CBC W/O DIFF,HEMOGRAM [HEME] Timed (1) CREATINE KINASE,CK [CHEM] Timed - Plan Plan:: ASSESSMENT AND PLAN - Acute traumatic rhabdomyolysis-secondary to fall and spending the night on the floor. CK level has improved with hydration overnight and is now down from more than 6000 to less than 2000. Kidney function stable. Vital signs stable. She is complaining of some left hip pain today but the x-ray was negative. -Continue IV fluids -Repeat CK level in the morning -Close monitoring of intake and output -Physical therapy Acute kidney injury-creatinine improving with hydration. -fluids as above -Repeat labs in the morning Recurrent falls-patient reports that the falls are secondary to losing her balance. She would benefit from physical therapy evaluation and likely subacute rehabilitation prior to transition to assisted living or potentially but much less likely home. She has been seen by neuropsychology and there is concern for overmedication versus inappropriate consumption of medications. We are still working on getting a hold of the patient's home medications for further clarification of what exactly she has been taking. -Review medications when able -Reduce or discontinue medications that may lead to confusion or difficulty with balance -High fall risk -Physical therapy Acquired hypothyroidism-normal range. TSH is elevated but free T4 is in the normal range. For now we will continue her current supplement and re-check down the road. Maintenance issues - - DVT prophylaxis - mechanical with recent multiple trauma - GI prophylaxis -PPI - Nutrition -regular Disposition -[facility] would [facility] for [facility] re[facility] Adrian Child M.D.
[2019-11-07] MEDS: Acetaminophen 325 MG Tab PO PRN ×2 (15:10→19:48)
[2019-11-07] MEDS: cefTRIAXone 1 GM in Sodium Chloride 0.9% 50 ML IV SCH (17:53)
[2019-11-07] MEDS: Melatonin 3 MG Tab PO SCH ×2 (19:47→20:11)
[2019-11-08] MEDS: Acetaminophen 325 MG Tab PO PRN ×4 (01:47→21:34)
[2019-11-08] MEDS: Sodium Chloride 0.9% 1,000 ML IV SCH ×2 (02:43→10:43)
[2019-11-08] MEDS: Potassium Chloride 20 MEQ Tab.ER PO SCH ×2 (08:39→17:11)
[2019-11-08] MEDS: Cyanocobalamin (Vitamin B12) 1,000 MCG Tab SL SCH (10:29)
[2019-11-08] MEDS: Polyethylene Glycol 3350 Powder 17 GM Packet PO SCH (10:30)
[2019-11-08] MEDS: Pantoprazole 40 MG Tab.CR PO SCH (10:30)
[2019-11-08] MEDS: Bacitracin Oint 1 GM U/D Packet TOP SCH (10:32)
--- NOTE | 2019-11-08 13:35 | PCM.PN ---
- General Info Date of Service: 11/08/19 Subjective Update: No acute events overnight. No fevers. No SOB or nausea. Mild pains in both knees which is better with APAP. CK down to 700ish. Urine culture with mixed sarah. Still very weak. Functional Status: Reports: Pain Controlled, Tolerating Diet - Review of Systems General: Reports: Weakness - Patient Data Vitals - Most Recent: Last Vital Signs Temp 35.7 C 11/08/19 10:49 Pulse 76 11/08/19 10:49 Resp 15 11/08/19 10:49 BP 138/87 11/08/19 10:49 Pulse Ox 94 L 11/08/19 10:49 Weight - Most Recent: 64.892 kg I&O - Last 24 Hours: Intake & Output 11/07/19 11/08/19 11/08/19 22:59 06:59 14:59 Intake Total 2950 1464 600 Output Total 200 200 Balance 2950 1264 400 Lab Results Last 24 Hours: Laboratory Results - last 24 hr 11/08/19 11/08/19 Range/Units 04:41 04:41 WBC 10.7 (4.5-11.0) K/uL RBC 3.50 (3.30-5.50) M/uL Hgb 11.4 L (12.0-15.0) g/dL Hct 35.1 L (36.0-48.0) % MCV 100 H (80-98) fL MCH 33 H (27-31) pg MCHC 33 (32-36) % Plt Count 240 (150-400) K/uL Sodium 138 L (140-148) mmol/L Potassium 4.5 (3.6-5.2) mmol/L Chloride 110 H (100-108) mmol/L Carbon Dioxide 19 L (21-32) mmol/L Anion Gap 13.5 (5.0-14.0) mmol/L BUN 32 H (7-18) mg/dL Creatinine 0.7 (0.6-1.0) mg/dL Est Cr Clr Drug Dosing 49.23 mL/min Estimated GFR (MDRD) > 60 (>60) Glucose 114 H (74-106) mg/dL Calcium 7.9 L (8.5-10.1) mg/dL Creatine Kinase 741 H (26-192) U/L Edgar Results Last 24 Hours: Microbiology 11/06/19 12:02 Quick Strep Confirmation Culture - Preliminary Throat NO GROUP A STREP ISOLATED REFERENCE RANGE: NEGATIVE Group A Streptococcus Rapid Screen - Final NEGATIVE STREP A SCREEN REFERENCE RANGE: NEGATIVE 11/06/19 18:29 Urine Culture - Preliminary Urine, Bladder MIXED POSITIVE SARAH DAY 1 Med Orders - Current: Current Medications Acetaminophen (Tylenol) 650 mg PO Q4H PRN PRN Reason: Pain (Mild 1-3)/fever Last Admin: 11/08/19 05:45 Dose: 650 mg Albuterol (Proventil Neb Soln) 2.5 mg NEB Q4H PRN PRN Reason: Shortness Of Breath/wheezing Bacitracin (Bacitracin Oint 1 Gm) 1 dose TOP DAILY [facility] Last Admin: 11/08/19 10:32 Dose: 1 dose Cyanocobalamin (Vitamin B12) 2,500 mcg SL DAILY [facility] Last Admin: 11/08/19 10:29 Dose: 2,500 mcg Sodium Chloride (Normal Saline) 1,000 mls @ 50 mls/hr IV ASDIRECTED [facility] Last Admin: 11/08/19 10:43 Dose: 50 mls/hr Lorazepam (Ativan) 0.5 mg PO BID PRN PRN Reason: Anxiety Lorazepam (Ativan) 0.5 mg IVPUSH Q4H PRN PRN Reason: Nausea/Vomiting Magnesium Hydroxide (Milk Of Magnesia) 30 ml PO Q12H PRN PRN Reason: Constipation Melatonin (Melatonin) 9 mg PO BEDTIME [facility] Last Admin: 11/07/19 20:11 Dose: Not Given Ondansetron HCl (Zofran Odt) 4 mg PO Q6H PRN PRN Reason: Nausea able to take PO Ondansetron HCl (Zofran) 4 mg IV Q6H PRN PRN Reason: Nausea/Vomiting Pantoprazole Sodium (Protonix) 40 mg PO DAILY [facility] Last Admin: 11/08/19 10:30 Dose: 40 mg Polyethylene Glycol (Miralax) 17 gm PO DAILY [facility] Last Admin: 11/08/19 10:30 Dose: 17 gm Potassium Chloride (Klor-Con M20) 40 meq PO BIDAC [facility] Last Admin: 11/08/19 08:39 Dose: 40 meq Senna/Docusate Sodium (Senna Plus) 1 tab PO BID PRN PRN Reason: Constipation Thyroid ([place] Thyroid) 90 mg PO ACBREAKFAST [facility] Last Admin: 11/08/19 08:39 Dose: 90 mg Discontinued Medications Sodium Chloride (Normal Saline) 1,000 mls @ 999 mls/hr IV ASDIRECTED [facility] Last Admin: 11/06/19 13:27 Dose: 999 mls/hr Sodium Chloride (Normal Saline) 1,000 mls @ 500 mls/hr IV ASDIRECTED [facility] Stop: 11/06/19 17:01 Last Admin: 11/06/19 15:38 Dose: 500 mls/hr Sodium Chloride (Normal Saline) 1,000 mls @ 125 mls/hr IV ASDIRECTED [facility] Last Admin: 11/08/19 02:43 Dose: 125 mls/hr Ceftriaxone Sodium 1 gm/ (Sodium Chloride) 50 mls @ 100 mls/hr IV Q24H [facility] Last Admin: 11/07/19 17:53 Dose: 100 mls/hr Sepsis Event Note - Evaluation Sepsis Screening Result: No Definite Risk - Focused Exam Vital Signs: Vital Signs Temp Pulse Resp BP Pulse Ox 11/08/19 10:49 35.7 C 76 15 138/87 94 L 11/08/19 07:00 35.8 C 78 17 132/89 96 11/08/19 02:44 35.4 C 74 16 124/83 97 Date Exam was Performed: 11/08/19 Time Exam was Performed: 13:33 - Problem List & Annotations (1) Traumatic rhabdomyolysis SNOMED Code(s): 739653568 Code(s): T79.6XXA - TRAUMATIC ISCHEMIA OF MUSCLE, INITIAL ENCOUNTER Status : Acute Current Visit: Yes Qualifiers: Encounter type: initial encounter Qualified Code(s): T79.6XXA - Traumatic ischemia of muscle, initial encounter (2) Acute renal failure due to traumatic rhabdomyolysis SNOMED Code(s): 030911593 Code(s): N17.9 - ACUTE KIDNEY FAILURE, UNSPECIFIED; T79.6XXA - TRAUMATIC ISCHEMIA OF MUSCLE, INITIAL ENCOUNTER Status: Acute Current Visit: Yes (3) Recurrent falls SNOMED Code(s): 997866235 Code(s): R29.6 - REPEATED FALLS Status: Chronic Current Visit: Yes (4) Hypothyroidism SNOMED Code(s): 20043416 Code(s): E03.9 - HYPOTHYROIDISM, UNSPECIFIED Status: Resolved Priority: Low Current Visit: No Qualifiers: Hypothyroidism type: acquired Qualified Code(s): E03.9 - Hypothyroidism, unspecified - Problem List Review Problem List Initiated/Reviewed/Updated: Yes - My Orders Last 24 Hours: My Active Orders 11/07/19 13:11 Consult to Physical Anthropologist [CONS] Routine 11/08/19 09:00 Sodium Chloride 0.9% [Normal Saline] 1,000 ml IV ASDIRECTED 11/09/19 05:00 BASIC METABOLIC PANEL,BMP [CHEM] Timed CBC W/O DIFF,HEMOGRAM [HEME] Timed (1) CREATINE KINASE,CK [CHEM] Timed - Plan Plan:: ASSESSMENT AND PLAN - Acute traumatic rhabdomyolysis-secondary to fall and spending the night on the floor. CK level has improved further but not quite normal. Kidney function now back to baseline. -Continue IV fluids with rate decrease -Repeat CK level in the morning -Close monitoring of intake and output -Physical therapy Acute kidney injury-creatinine now back to baseline -fluids as above -Repeat labs in the morning Recurrent falls-patient reports that the falls are secondary to losing her balance. She would benefit from physical therapy evaluation and likely subacute rehabilitation prior to transition to assisted living or potentially but much less likely home. She has been seen by neuropsychology and there is concern for overmedication versus inappropriate consumption of medications. -Review medications when able -Reduce or discontinue medications that may lead to confusion or difficulty with balance -High fall risk -Physical therapy Acquired hypothyroidism-normal range. TSH is elevated but free T4 is in the normal range. For now we will continue her current supplement and re-check down the road. Maintenance issues - - DVT prophylaxis - mechanical with recent multiple trauma - GI prophylaxis -PPI - Nutrition -regular Disposition -I would anticipate discharge to [facility] facility for subacute rehab when bed available on Monday. Adrian Child M.D.
[2019-11-08] MEDS: traMADol 50 MG Tab PO PRN ×2 (17:10→22:27)
[2019-11-08] MEDS: Melatonin 3 MG Tab PO SCH ×2 (19:13→20:30)
[2019-11-09] MEDS: Sodium Chloride 0.9% 1,000 ML IV SCH (06:27)
[2019-11-09] MEDS: Cyanocobalamin (Vitamin B12) 1,000 MCG Tab SL SCH (08:56)
[2019-11-09] MEDS: Pantoprazole 40 MG Tab.CR PO SCH (08:57)
[2019-11-09] MEDS: Acetaminophen 325 MG Tab PO PRN (09:01)
[2019-11-09] MEDS: Polyethylene Glycol 3350 Powder 17 GM Packet PO SCH (09:02)
--- NOTE | 2019-11-09 10:08 | PCM.PN ---
- General Info Date of Service: 11/09/19 Subjective Update: There were no acute events overnight. Patient has some mild pain in her knees but otherwise feels fairly well. No abdominal pain or nausea this morning. She did have some mild abdominal pain last night but this has resolved. She has not had any fevers. No complaints of shortness of breath. She remains quite weak but strength is slowly improving. CK level is nearly normal this morning. Functional Status: Reports: Pain Controlled, Tolerating Diet - Review of Systems General: Reports: Weakness - Patient Data Vitals - Most Recent: Last Vital Signs Temp 35.5 C 11/09/19 08:17 Pulse 78 11/09/19 08:17 Resp 12 11/09/19 08:17 BP 119/80 11/09/19 08:17 Pulse Ox 95 11/09/19 08:17 Weight - Most Recent: 64.892 kg I&O - Last 24 Hours: Intake & Output 11/08/19 11/09/19 11/09/19 22:59 06:59 14:59 Intake Total 1070 625 200 Output Total 200 200 Balance 870 425 200 Lab Results Last 24 Hours: Laboratory Results - last 24 hr 11/09/19 11/09/19 Range/Units 05:30 05:30 WBC 11.0 (4.5-11.0) K/uL RBC 3.56 (3.30-5.50) M/uL Hgb 11.7 L (12.0-15.0) g/dL Hct 36.6 (36.0-48.0) % MCV 103 H (80-98) fL MCH 33 H (27-31) pg MCHC 32 (32-36) % Plt Count 247 (150-400) K/uL Sodium 139 L (140-148) mmol/L Potassium 5.0 (3.6-5.2) mmol/L Chloride 111 H (100-108) mmol/L Carbon Dioxide 18 L (21-32) mmol/L Anion Gap 15.0 H (5.0-14.0) mmol/L BUN 24 H (7-18) mg/dL Creatinine 0.5 L (0.6-1.0) mg/dL Est Cr Clr Drug Dosing 68.92 mL/min Estimated GFR (MDRD) > 60 (>60) Glucose 94 (74-106) mg/dL Calcium 8.2 L (8.5-10.1) mg/dL Creatine Kinase 323 H (26-192) U/L Edgar Results Last 24 Hours: Microbiology 11/06/19 12:02 Quick Strep Confirmation Culture - Final Throat NO GROUP A STREP ISOLATED REFERENCE RANGE: NEGATIVE Group A Streptococcus Rapid Screen - Final NEGATIVE STREP A SCREEN REFERENCE RANGE: NEGATIVE 11/06/19 18:29 Urine Culture - Final Urine, Bladder MIXED POSITIVE RUBEN DAY 2 Med Orders - Current: Current Medications Acetaminophen (Tylenol) 650 mg PO Q4H PRN PRN Reason: Pain (Mild 1-3)/fever Last Admin: 11/09/19 09:01 Dose: 650 mg Albuterol (Proventil Neb Soln) 2.5 mg NEB Q4H PRN PRN Reason: Shortness Of Breath/wheezing Bacitracin (Bacitracin Oint 1 Gm) 1 dose TOP DAILY [facility] Last Admin: 11/08/19 10:32 Dose: 1 dose Cyanocobalamin (Vitamin B12) 2,500 mcg SL DAILY [facility] Last Admin: 11/09/19 08:56 Dose: 2,500 mcg Lorazepam (Ativan) 0.5 mg PO BID PRN PRN Reason: Anxiety Lorazepam (Ativan) 0.5 mg IVPUSH Q4H PRN PRN Reason: Nausea/Vomiting Magnesium Hydroxide (Milk Of Magnesia) 30 ml PO Q12H PRN PRN Reason: Constipation Melatonin (Melatonin) 9 mg PO BEDTIME [facility] Last Admin: 11/08/19 20:30 Dose: Not Given Ondansetron HCl (Zofran Odt) 4 mg PO Q6H PRN PRN Reason: Nausea able to take PO Last Admin: 11/08/19 13:50 Dose: 4 mg Ondansetron HCl (Zofran) 4 mg IV Q6H PRN PRN Reason: Nausea/Vomiting Pantoprazole Sodium (Protonix) 40 mg PO DAILY [facility] Last Admin: 11/09/19 08:57 Dose: 40 mg Polyethylene Glycol (Miralax) 17 gm PO DAILY [facility] Last Admin: 11/09/19 09:02 Dose: Not Given Senna/Docusate Sodium (Senna Plus) 1 tab PO BID PRN PRN Reason: Constipation Last Admin: 11/09/19 09:00 Dose: 1 tab Thyroid (Nelson Thyroid) 90 mg PO ACBREAKFAST [facility] Last Admin: 11/09/19 08:57 Dose: 90 mg Tramadol HCl (Ultram) 50 mg PO Q6H PRN PRN Reason: Pain (moderate 4-6) Last Admin: 11/08/19 22:27 Dose: 50 mg Discontinued Medications Sodium Chloride (Normal Saline) 1,000 mls @ 999 mls/hr IV ASDIRECTED [facility] Last Admin: 11/06/19 13:27 Dose: 999 mls/hr Sodium Chloride (Normal Saline) 1,000 mls @ 500 mls/hr IV ASDIRECTED [facility] Stop: 11/06/19 17:01 Last Admin: 11/06/19 15:38 Dose: 500 mls/hr Sodium Chloride (Normal Saline) 1,000 mls @ 125 mls/hr IV ASDIRECTED [facility] Last Admin: 11/08/19 02:43 Dose: 125 mls/hr Ceftriaxone Sodium 1 gm/ (Sodium Chloride) 50 mls @ 100 mls/hr IV Q24H [facility] Last Admin: 11/07/19 17:53 Dose: 100 mls/hr Sodium Chloride (Normal Saline) 1,000 mls @ 50 mls/hr IV ASDIRECTED [facility] Last Admin: 11/09/19 06:27 Dose: 50 mls/hr Potassium Chloride (Klor-Con M20) 40 meq PO BIDAC [facility] Last Admin: 11/08/19 17:11 Dose: 40 meq - Exam Quality Assessment: No: Supplemental Oxygen General: Alert, Oriented, Cooperative, No Acute Distress Lungs: Clear to Auscultation, Normal Respiratory Effort Cardiovascular: Regular Rate, Regular Rhythm GI/Abdominal Exam: Soft, No Distention Extremities: No Pedal Edema. No: Increased Warmth Psy/Mental Status: Alert, Normal Affect Sepsis Event Note - Evaluation Sepsis Screening Result: No Definite Risk - Focused Exam Vital Signs: Vital Signs Temp Pulse Resp BP Pulse Ox 11/09/19 08:17 35.5 C 78 12 119/80 95 11/09/19 03:00 15 11/08/19 22:24 35.7 C 82 18 136/88 94 L Date Exam was Performed: 11/09/19 Time Exam was Performed: 12:19 - Problem List & Annotations (1) Traumatic rhabdomyolysis SNOMED Code(s): 574588260 Code(s): T79.6XXA - TRAUMATIC ISCHEMIA OF MUSCLE, INITIAL ENCOUNTER Status : Acute Current Visit: Yes Qualifiers: Encounter type: initial encounter Qualified Code(s): T79.6XXA - Traumatic ischemia of muscle, initial encounter (2) Acute renal failure due to traumatic rhabdomyolysis SNOMED Code(s): 171320016 Code(s): N17.9 - ACUTE KIDNEY FAILURE, UNSPECIFIED; T79.6XXA - TRAUMATIC ISCHEMIA OF MUSCLE, INITIAL ENCOUNTER Status: Acute Current Visit: Yes (3) Recurrent falls SNOMED Code(s): 960571571 Code(s): R29.6 - REPEATED FALLS Status: Chronic Current Visit: Yes (4) Hypothyroidism SNOMED Code(s): 04276499 Code(s): E03.9 - HYPOTHYROIDISM, UNSPECIFIED Status: Resolved Priority: Low Current Visit: No Qualifiers: Hypothyroidism type: acquired Qualified Code(s): E03.9 - Hypothyroidism, unspecified - Problem List Review Problem List Initiated/Reviewed/Updated: Yes - My Orders Last 24 Hours: My Active Orders 11/08/19 16:50 traMADol [Ultram] 50 mg PO Q6H PRN 11/09/19 08:38 Convert IV to Saline Lock [OM.PC] Routine 11/10/19 05:00 BASIC METABOLIC PANEL,BMP [CHEM] Timed - Plan Plan:: ASSESSMENT AND PLAN - Acute traumatic rhabdomyolysis-secondary to fall and spending the night on the floor. CK level has nearly normalized. Still quite weak but otherwise improving. -Saline lock IV -Close monitoring of intake and output -Physical therapy Acute kidney injury-creatinine now back to baseline. -Repeat labs in the morning Recurrent falls-patient reports that the falls are secondary to losing her balance. She would benefit from physical therapy evaluation and likely subacute rehabilitation prior to transition to assisted living or potentially but much less likely home. She has been seen by neuropsychology and there is concern for overmedication versus inappropriate consumption of medications. -High fall risk -Physical therapy Acquired hypothyroidism-normal range. TSH is elevated but free T4 is in the normal range. For now we will continue her current supplement and re-check down the road. Maintenance issues - - DVT prophylaxis - mechanical with recent multiple trauma - GI prophylaxis -PPI - Nutrition -regular Disposition -I would anticipate discharge to [facility] facility for subacute rehab when bed available on Monday. She is stable for discharge at this time but unfortunately we do not have a safe discharge plan with no prison bed available for 2 days. Adrian Child M.D.
[2019-11-09] MEDS ORDERED: Acetaminophen 325 MG Tab PO PRN (10:25)
[2019-11-09] MEDS: Potassium Chloride 20 MEQ Tab.ER PO SCH (10:31)
[2019-11-09] MEDS: Acetaminophen 325 MG Tab PO SCH ×2 (13:06→20:20)
[2019-11-09] MEDS: Bacitracin Oint 1 GM U/D Packet TOP SCH (13:08)
[2019-11-09] MEDS: traMADol 50 MG Tab PO PRN ×2 (15:43→22:35)
[2019-11-09] MEDS: Melatonin 3 MG Tab PO SCH (20:20)
[2019-11-10] MEDS: Pantoprazole 40 MG Tab.CR PO SCH (08:31)
[2019-11-10] MEDS: Acetaminophen 325 MG Tab PO SCH ×3 (08:31→20:09)
[2019-11-10] MEDS: Polyethylene Glycol 3350 Powder 17 GM Packet PO SCH (08:32)
[2019-11-10] MEDS: Cyanocobalamin (Vitamin B12) 1,000 MCG Tab SL SCH (08:41)
--- NOTE | 2019-11-10 09:33 | PCM.PN ---
- General Info Date of Service: 11/10/19 Subjective Update: No acute events overnight. No fevers. No abdominal pain or nausea. Still feels weak but otherwise feels okay. Still having some mild achy pain in her knees but this is at baseline. Tolerating supplements with meals. Functional Status: Reports: Pain Controlled, Tolerating Diet - Review of Systems General: Reports: Weakness Gastrointestinal: Denies: Abdominal Pain - Patient Data Vitals - Most Recent: Last Vital Signs Temp 35.8 C 11/10/19 07:49 Pulse 81 11/10/19 07:49 Resp 16 11/10/19 07:49 BP 135/85 11/10/19 07:49 Pulse Ox 95 11/10/19 07:49 Weight - Most Recent: 64.892 kg I&O - Last 24 Hours: Intake & Output 11/09/19 11/10/19 11/10/19 22:59 06:59 14:59 Intake Total 240 50 Output Total 250 250 150 Balance -10 -200 -150 Lab Results Last 24 Hours: Laboratory Results - last 24 hr 11/10/19 Range/Units 04:20 Sodium 141 (140-148) mmol/L Potassium 4.5 (3.6-5.2) mmol/L Chloride 109 H (100-108) mmol/L Carbon Dioxide 20 L (21-32) mmol/L Anion Gap 16.5 H (5.0-14.0) mmol/L BUN 25 H (7-18) mg/dL Creatinine 0.6 (0.6-1.0) mg/dL Est Cr Clr Drug Dosing 57.43 mL/min Estimated GFR (MDRD) > 60 (>60) Glucose 92 (74-106) mg/dL Calcium 8.3 L (8.5-10.1) mg/dL Edgar Results Last 24 Hours: Microbiology 11/06/19 12:02 Quick Strep Confirmation Culture - Final Throat NO GROUP A STREP ISOLATED REFERENCE RANGE: NEGATIVE Group A Streptococcus Rapid Screen - Final NEGATIVE STREP A SCREEN REFERENCE RANGE: NEGATIVE 11/06/19 18:29 Urine Culture - Final Urine, Bladder MIXED POSITIVE RUBEN DAY 2 Med Orders - Current: Current Medications Acetaminophen (Tylenol) 650 mg PO TID [facility] Last Admin: 11/10/19 08:31 Dose: 650 mg Acetaminophen (Tylenol) 650 mg PO BID PRN PRN Reason: Pain (Mild 1-3)/fever Albuterol (Proventil Neb Soln) 2.5 mg NEB Q4H PRN PRN Reason: Shortness Of Breath/wheezing Bacitracin (Bacitracin Oint 1 Gm) 1 dose TOP DAILY [facility] Last Admin: 11/09/19 13:08 Dose: Not Given Cyanocobalamin (Vitamin B12) 2,500 mcg SL DAILY [facility] Last Admin: 11/10/19 08:41 Dose: 2,500 mcg Lorazepam (Ativan) 0.5 mg PO BID PRN PRN Reason: Anxiety Lorazepam (Ativan) 0.5 mg IVPUSH Q4H PRN PRN Reason: Nausea/Vomiting Magnesium Hydroxide (Milk Of Magnesia) 30 ml PO Q12H PRN PRN Reason: Constipation Melatonin (Melatonin) 9 mg PO BEDTIME [facility] Last Admin: 11/09/19 20:20 Dose: 9 mg Ondansetron HCl (Zofran Odt) 4 mg PO Q6H PRN PRN Reason: Nausea able to take PO Last Admin: 11/08/19 13:50 Dose: 4 mg Ondansetron HCl (Zofran) 4 mg IV Q6H PRN PRN Reason: Nausea/Vomiting Pantoprazole Sodium (Protonix) 40 mg PO DAILY [facility] Last Admin: 11/10/19 08:31 Dose: 40 mg Polyethylene Glycol (Miralax) 17 gm PO DAILY [facility] Last Admin: 11/10/19 08:32 Dose: Not Given Senna/Docusate Sodium (Senna Plus) 1 tab PO BID PRN PRN Reason: Constipation Last Admin: 11/09/19 09:00 Dose: 1 tab Thyroid (Ravenel Thyroid) 90 mg PO ACBREAKFAST [facility] Last Admin: 11/10/19 08:30 Dose: 90 mg Tramadol HCl (Ultram) 50 mg PO Q6H PRN PRN Reason: Pain (moderate 4-6) Last Admin: 11/09/19 22:35 Dose: 50 mg Discontinued Medications Acetaminophen (Tylenol) 650 mg PO Q4H PRN PRN Reason: Pain (Mild 1-3)/fever Last Admin: 11/09/19 09:01 Dose: 650 mg Sodium Chloride (Normal Saline) 1,000 mls @ 999 mls/hr IV ASDIRECTED [facility] Last Admin: 11/06/19 13:27 Dose: 999 mls/hr Sodium Chloride (Normal Saline) 1,000 mls @ 500 mls/hr IV ASDIRECTED [facility] Stop: 11/06/19 17:01 Last Admin: 11/06/19 15:38 Dose: 500 mls/hr Sodium Chloride (Normal Saline) 1,000 mls @ 125 mls/hr IV ASDIRECTED [facility] Last Admin: 11/08/19 02:43 Dose: 125 mls/hr Ceftriaxone Sodium 1 gm/ (Sodium Chloride) 50 mls @ 100 mls/hr IV Q24H [facility] Last Admin: 11/07/19 17:53 Dose: 100 mls/hr Sodium Chloride (Normal Saline) 1,000 mls @ 50 mls/hr IV ASDIRECTED [facility] Last Admin: 11/09/19 06:27 Dose: 50 mls/hr Potassium Chloride (Klor-Con M20) 40 meq PO BIDAC [facility] Last Admin: 11/09/19 10:31 Dose: Not Given - Exam Quality Assessment: No: Supplemental Oxygen General: Alert, Oriented, Cooperative, No Acute Distress Lungs: Normal Respiratory Effort Cardiovascular: Regular Rate, Regular Rhythm GI/Abdominal Exam: Soft, No Distention Extremities: No Pedal Edema Psy/Mental Status: Alert, Normal Affect Sepsis Event Note - Evaluation Sepsis Screening Result: No Definite Risk - Focused Exam Vital Signs: Vital Signs Temp Pulse Resp BP Pulse Ox 11/10/19 07:49 35.8 C 81 16 135/85 95 11/10/19 03:00 35.4 C 88 16 135/87 96 11/09/19 22:37 36.0 C 79 18 139/87 96 Date Exam was Performed: 11/10/19 Time Exam was Performed: 12:33 - Problem List & Annotations (1) Traumatic rhabdomyolysis SNOMED Code(s): 916911418 Code(s): T79.6XXA - TRAUMATIC ISCHEMIA OF MUSCLE, INITIAL ENCOUNTER Status : Acute Current Visit: Yes Qualifiers: Encounter type: initial encounter Qualified Code(s): T79.6XXA - Traumatic ischemia of muscle, initial encounter (2) Acute renal failure due to traumatic rhabdomyolysis SNOMED Code(s): 966696864 Code(s): N17.9 - ACUTE KIDNEY FAILURE, UNSPECIFIED; T79.6XXA - TRAUMATIC ISCHEMIA OF MUSCLE, INITIAL ENCOUNTER Status: Acute Current Visit: Yes (3) Recurrent falls SNOMED Code(s): 417309228 Code(s): R29.6 - REPEATED FALLS Status: Chronic Current Visit: Yes (4) Hypothyroidism SNOMED Code(s): 48751111 Code(s): E03.9 - HYPOTHYROIDISM, UNSPECIFIED Status: Resolved Priority: Low Current Visit: No Qualifiers: Hypothyroidism type: acquired Qualified Code(s): E03.9 - Hypothyroidism, unspecified - Problem List Review Problem List Initiated/Reviewed/Updated: Yes - My Orders Last 24 Hours: My Active Orders 11/09/19 08:38 Convert IV to Saline Lock [OM.PC] Routine 11/09/19 10:25 Acetaminophen [Tylenol] 650 mg PO BID PRN 11/09/19 14:00 Acetaminophen [Tylenol] 650 mg PO TID - Plan Plan:: ASSESSMENT AND PLAN - Acute traumatic rhabdomyolysis-secondary to fall and spending the night on the floor. CK level has normalized. Still quite weak but otherwise improving. -Saline lock IV -Close monitoring of intake and output -Physical therapy Acute kidney injury-creatinine now back to baseline. -Repeat labs in the morning Recurrent falls-patient reports that the falls are secondary to losing her balance. She would benefit from physical therapy evaluation and likely subacute rehabilitation prior to transition to assisted living or potentially but much less likely home. She has been seen by neuropsychology and there is concern for overmedication versus inappropriate consumption of medications. -High fall risk -Physical therapy Acquired hypothyroidism-TSH mildly elevated but free T4 in normal range. -Outpatient follow-up Maintenance issues - - DVT prophylaxis - mechanical with recent multiple trauma - GI prophylaxis -PPI - Nutrition -regular Disposition -I would anticipate discharge to senior care facility for subacute rehab when bed available on Monday. She is stable for discharge at this time but unfortunately we do not have a safe discharge plan with no long-term bed available until tomorrow. Adrian Child M.D.
--- NOTE | 2019-11-10 09:47 | PCM.DCSUM1 ---
Discharge Summary - Hospital Course Brief History: 79-year-old female with history of acquired hypothyroidism, alcohol dependence and depression with anxiety who presented with weakness and a fall after spending a night on the floor. She was admitted for management of acute rhabdomyolysis with acute kidney injury and generalized weakness. Diagnosis: Stroke: No - Discharge Data Discharge Date: 11/11/19 Discharge Disposition: DC/Tfer to SNF 03 Condition: Fair - Referral to Home Health Primary Care Physician: PCP None - Discharge Diagnosis/Problem(s) (1) Traumatic rhabdomyolysis SNOMED Code(s): 623096889 ICD Code: T79.6XXA - TRAUMATIC ISCHEMIA OF MUSCLE, INITIAL ENCOUNTER Status : Acute Current Visit: Yes Qualifiers: Encounter type: initial encounter Qualified Code(s): T79.6XXA - Traumatic ischemia of muscle, initial encounter (2) Acute renal failure due to traumatic rhabdomyolysis SNOMED Code(s): 362107053 ICD Code: N17.9 - ACUTE KIDNEY FAILURE, UNSPECIFIED; T79.6XXA - TRAUMATIC ISCHEMIA OF MUSCLE, INITIAL ENCOUNTER Status: Acute Current Visit: Yes (3) Recurrent falls SNOMED Code(s): 477925483 ICD Code: R29.6 - REPEATED FALLS Status: Chronic Current Visit: Yes (4) Hypothyroidism SNOMED Code(s): 77108310 ICD Code: E03.9 - HYPOTHYROIDISM, UNSPECIFIED Status: Resolved Priority: Low Current Visit: No Qualifiers: Hypothyroidism type: acquired Qualified Code(s): E03.9 - Hypothyroidism, unspecified - Patient Summary/Data Consults: Consultations 11/07/19 07:00 PT Evaluation and Treatment [CONS] Routine Please Evaluate and Treat. PT Reason for Consult: Strengthening This query below is only for informational purposes and is not editable. 11/07/19 13:11 Consult to Nursery Technician [CONS] Routine Comment: Physician Instructions: Quantity: Reason for Consult: s/p GBP, poor intake, limited food choices Hospital Course: Cielo presented to the emergency room with after a fall at home. She was too weak to get off the floor so she spent the night on the floor. She had multiple abrasions on her knees and her legs from crawling around. She had multiple bruises on her face and arms. Laboratory studies were remarkable for acute rhabdomyolysis with a CK level more than 6000. She had acute kidney injury with a creatinine more than double her baseline. She also had hypokalemia. She was extremely weak. She received IV fluids in the emergency room and was admitted to the hospital for further management. IV fluids were continued. Her potassium was supplemented. Over the next 3 days her CK level trended down and eventually normalized. Kidney function returned to baseline and has been stable. Her potassium has normalized with supplementation. Her strength is slowly improving but she remains very weak and requires quite a bit of assistance even to perform basic ADLs. She did work with physical therapy and made some progress but remains too weak to be safe to go home. [facility]. Her hospital stay was prolonged by 2 days because of no short-term rehab beds were available over the weekend so she had to remain hospitalized. She is stable and safe for discharge at this time. Friends and family have been concerned about her cognition recently. She has seen the neuropsychologist twice. He was concerned that medications and or alcohol may be contributing to some of her memory difficulties. I did decrease her lorazepam from 1 mg down to 0.5 mg. Patient reports that she has not consumed alcohol in 3 weeks but at the time of presentation her AST was about 3 times higher than her ALT and I suspect that she has been actively drinking. I encouraged her to avoid sleeping medications that contain diphenhydramine as this can increase the risk of confusion and memory difficulties. She is been sleeping well using melatonin. Her TSH was mildly elevated but free T4 was normal. She would benefit from a recheck in about 4 weeks after her rehab. - Patient Instructions Diet: Regular Diet as Tolerated Activity: As Tolerated Showering/Bathing: May Shower Notify Provider of: Fever, Increased Pain, Nausea and/or Vomiting Other/Special Instructions: 1. Referral to PT and OT for strengthening. 2. Code status - DNR/DNI. 3. Follow up with Dr Shankar in 1-2 weeks - Discharge Plan *PRESCRIPTION DRUG MONITORING PROGRAM REVIEWED*: Not Applicable *COPY OF PRESCRIPTION DRUG MONITORING REPORT IN PATIENT SANGEETA: Not Applicable Prescriptions/Med Rec: Acetaminophen [Tylenol] 650 mg PO BID PRN #100 tablet PRN Reason: Pain (Mild 1-3)/fever Acetaminophen [Tylenol] 650 mg PO TID #100 tablet LORazepam 0.5 mg PO BID PRN #30 tab PRN Reason: Anxiety Melatonin 10 mg PO BEDTIME #30 tablet Pantoprazole [ProTONIX] 40 mg PO DAILY #15 tab.cr Home Medications: Home Meds Cholecalciferol (Vitamin D3) [Vitamin D3] 2,000 unit PO DAILY 10/28/15 [History] Cyanocobalamin (Vitamin B-12) [Vitamin B-12] 2,500 mcg SL DAILY 10/28/15 [ History] Potassium Chloride [Klor-Con 10] 10 meq PO DAILY 10/28/15 [History] Calcium Carbonate/Vitamin D3 [Calcium Carbonate/Vitamin D 600 MG-200 Unit] 1, 000 - 1,200 mg PO BID 02/19/18 [History] Thyroid,Pork [[employer] And Recovery Supervisor Thyroid] 90 mg PO ACBREAKFAST 11/06/19 [History] Acetaminophen [Tylenol] 650 mg PO BID PRN #100 tablet 11/10/19 [Rx] Acetaminophen [Tylenol] 650 mg PO TID #100 tablet 11/10/19 [Rx] LORazepam 0.5 mg PO BID PRN #30 tab 11/10/19 [Rx] Melatonin 10 mg PO BEDTIME #30 tablet 11/10/19 [Rx] Pantoprazole [ProTONIX] 40 mg PO DAILY #15 tab.cr 11/10/19 [Rx] Oxygen Therapy Mode: Room Air Patient Handouts: Rhabdomyolysis Referrals: Conor Shankar MD [Physician] - (1-2 weeks - f/u hospital stay for fall, rhabdo, weakness) - Discharge Summary/Plan Comment DC Time >30 min.: Yes (35 - new [facility] discharge ) - Patient Data Vitals - Most Recent: Last Vital Signs Temp 35.8 C 11/10/19 07:49 Pulse 81 11/10/19 07:49 Resp 16 11/10/19 07:49 BP 135/85 11/10/19 07:49 Pulse Ox 95 11/10/19 07:49 Weight - Most Recent: 64.892 kg I&O - Last 24 hours: Intake & Output 11/09/19 11/10/19 11/10/19 22:59 06:59 14:59 Intake Total 240 50 Output Total 250 250 150 Balance -10 -200 -150 Lab Results - Last 24 hrs: Laboratory Results - last 24 hr 11/10/19 Range/Units 04:20 Sodium 141 (140-148) mmol/L Potassium 4.5 (3.6-5.2) mmol/L Chloride 109 H (100-108) mmol/L Carbon Dioxide 20 L (21-32) mmol/L Anion Gap 16.5 H (5.0-14.0) mmol/L BUN 25 H (7-18) mg/dL Creatinine 0.6 (0.6-1.0) mg/dL Est Cr Clr Drug Dosing 57.43 mL/min Estimated GFR (MDRD) > 60 (>60) Glucose 92 (74-106) mg/dL Calcium 8.3 L (8.5-10.1) mg/dL JASMINA Results - Last 24 hrs: Microbiology 11/06/19 12:02 Quick Strep Confirmation Culture - Final Throat NO GROUP A STREP ISOLATED REFERENCE RANGE: NEGATIVE Group A Streptococcus Rapid Screen - Final NEGATIVE STREP A SCREEN REFERENCE RANGE: NEGATIVE 11/06/19 18:29 Urine Culture - Final Urine, Bladder MIXED POSITIVE RUBEN DAY 2 Med Orders - Current: Current Medications Acetaminophen (Tylenol) 650 mg PO TID [facility] Last Admin: 11/10/19 08:31 Dose: 650 mg Acetaminophen (Tylenol) 650 mg PO BID PRN PRN Reason: Pain (Mild 1-3)/fever Albuterol (Proventil Neb Soln) 2.5 mg NEB Q4H PRN PRN Reason: Shortness Of Breath/wheezing Bacitracin (Bacitracin Oint 1 Gm) 1 dose TOP DAILY [facility] Last Admin: 11/09/19 13:08 Dose: Not Given Cyanocobalamin (Vitamin B12) 2,500 mcg SL DAILY [facility] Last Admin: 11/10/19 08:41 Dose: 2,500 mcg Lorazepam (Ativan) 0.5 mg PO BID PRN PRN Reason: Anxiety Lorazepam (Ativan) 0.5 mg IVPUSH Q4H PRN PRN Reason: Nausea/Vomiting Magnesium Hydroxide (Milk Of Magnesia) 30 ml PO Q12H PRN PRN Reason: Constipation Melatonin (Melatonin) 9 mg PO BEDTIME [facility] Last Admin: 11/09/19 20:20 Dose: 9 mg Ondansetron HCl (Zofran Odt) 4 mg PO Q6H PRN PRN Reason: Nausea able to take PO Last Admin: 11/08/19 13:50 Dose: 4 mg Ondansetron HCl (Zofran) 4 mg IV Q6H PRN PRN Reason: Nausea/Vomiting Pantoprazole Sodium (Protonix) 40 mg PO DAILY [facility] Last Admin: 11/10/19 08:31 Dose: 40 mg Polyethylene Glycol (Miralax) 17 gm PO DAILY [facility] Last Admin: 11/10/19 08:32 Dose: Not Given Senna/Docusate Sodium (Senna Plus) 1 tab PO BID PRN PRN Reason: Constipation Last Admin: 11/09/19 09:00 Dose: 1 tab Thyroid ([place] Thyroid) 90 mg PO ACBREAKFAST [facility] Last Admin: 11/10/19 08:30 Dose: 90 mg Tramadol HCl (Ultram) 50 mg PO Q6H PRN PRN Reason: Pain (moderate 4-6) Last Admin: 11/09/19 22:35 Dose: 50 mg Discontinued Medications Acetaminophen (Tylenol) 650 mg PO Q4H PRN PRN Reason: Pain (Mild 1-3)/fever Last Admin: 11/09/19 09:01 Dose: 650 mg Sodium Chloride (Normal Saline) 1,000 mls @ 999 mls/hr IV ASDIRECTED [facility] Last Admin: 11/06/19 13:27 Dose: 999 mls/hr Sodium Chloride (Normal Saline) 1,000 mls @ 500 mls/hr IV ASDIRECTED [facility] Stop: 11/06/19 17:01 Last Admin: 11/06/19 15:38 Dose: 500 mls/hr Sodium Chloride (Normal Saline) 1,000 mls @ 125 mls/hr IV ASDIRECTED [facility] Last Admin: 11/08/19 02:43 Dose: 125 mls/hr Ceftriaxone Sodium 1 gm/ (Sodium Chloride) 50 mls @ 100 mls/hr IV Q24H [facility] Last Admin: 11/07/19 17:53 Dose: 100 mls/hr Sodium Chloride (Normal Saline) 1,000 mls @ 50 mls/hr IV ASDIRECTED [facility] Last Admin: 11/09/19 06:27 Dose: 50 mls/hr Potassium Chloride (Klor-Con M20) 40 meq PO BIDAC [facility] Last Admin: 11/09/19 10:31 Dose: Not Given *Q Meaningful Use (DIS) - VTE *Q VTE Pharmacological Contraindications *Q: Risk of Bleeding (multiple falls with multiple areas of trauma and bruising)
[2019-11-10] MEDS: Bacitracin Oint 1 GM U/D Packet TOP SCH (18:36)
[2019-11-10] MEDS: Melatonin 3 MG Tab PO SCH (20:10)
[2019-11-11] MEDS: traMADol 50 MG Tab PO PRN
[2019-11-11 08:13] VITALS: BP 145/93; PULSE 75
[2019-11-11] MEDS: Acetaminophen 325 MG Tab PO SCH (08:40)
[2019-11-11] MEDS: Polyethylene Glycol 3350 Powder 17 GM Packet PO SCH (08:41)
[2019-11-11] MEDS: Pantoprazole 40 MG Tab.CR PO SCH (08:41)
[2019-11-11] MEDS: Cyanocobalamin (Vitamin B12) 1,000 MCG Tab SL SCH (08:41)
[2019-11-11] MEDS: Bacitracin Oint 1 GM U/D Packet TOP SCH (08:42)
== END 2019-11-11 13:30 | DRG 565 ==
LOC: JP.ED 10:37 → JP.MS 15:04
PROVIDERS: ADMIT Internal Medicine; ATTEND Internal Medicine
DX: R74.8 Abnormal levels of other serum enzymes (principal); E86.0 Dehydration; N28.9 Disorder of kidney and ureter, unspecified; T14.8XXA Other injury of unspecified body region, initial encounter; T79.6XXA Traumatic ischemia of muscle, initial encounter; Z91.81 History of falling; N17.9 Acute kidney failure, unspecified; H54.7 Unspecified visual loss; S40.022A Contusion of left upper arm, initial encounter; M81.0 Age-related osteoporosis without current pathological fracture; G89.29 Other chronic pain; M25.569 Pain in unspecified knee; F32.9 Major depressive disorder, single episode, unspecified; F41.9 Anxiety disorder, unspecified; E53.8 Deficiency of other specified B group vitamins; E20.9 Hypoparathyroidism, unspecified; E66.9 Obesity, unspecified; Z88.8 Allergy status to other drugs, medicaments and biological substances; S40.021A Contusion of right upper arm, initial encounter; S00.83XA Contusion of other part of head, initial encounter; E03.9 Hypothyroidism, unspecified; E87.6 Hypokalemia; Z66 Do not resuscitate; M19.90 Unspecified osteoarthritis, unspecified site; Z90.710 Acquired absence of both cervix and uterus; Z87.891 Personal history of nicotine dependence; Z79.899 Other long term (current) drug therapy; W19.XXXA Unspecified fall, initial encounter; Y92.009 Unspecified place in unspecified non-institutional (private) residence as the place of occurrence of the external cause
CPT/HCPCS: 36415; 70450; 71045; 80053; 82550; 83735; 84439; 84443; 85025; 85610; 85730; 87081; 87880; J7030; 73502-LT; 80048; 81001; 82607; 85027; 87086; 97110-GP; 97161-GP; 97530-GP; 99284; A9270-GY; J0696; J7050